=== PATIENT | female | born 1990 ===

== ENCOUNTER 2017-05-30 09:02 | Inpatient (IN) | payer MEDICAID ==
[2017-05-30 09:05] VITALS: BMI 23.9
[2017-05-30] MEDS ORDERED: Sodium Chloride 0.9% 500 ML IV ONE (09:42)
--- NOTE | 2017-05-30 09:47 | ED PDOC ---
Lower Extremity Pain/Injury Time Seen by Provider: 05/30/17 09:21 Chief Complaint (Nursing): Lower Extremity Problem/Injury History Per: Patient History/Exam Limitations: no limitations Onset/Duration Of Symptoms: Days (3), Gradual Current Symptoms Are (Timing): Still Present Severity: Moderate Additional History Per: Patient Additional Complaint(s): pt states she twisted her knee 3 days ago, and sx are worsened today, also has diffuse tingling, anxiety, pt states last drink one day ago, denies chronic alcohol abuse. no f/c/n/v/cp/sob - Knee Description Of Injury: Twisted Currently Unable To: Straighten Alleviating Factor(s): OTC Pain Medication Past Medical History Reviewed: Historical Data, Nursing Documentation, Vital Signs Vital Signs: Last Vital Signs Temp 98.4 F 05/30/17 09:20 Pulse 121 H 05/30/17 09:20 Resp 18 05/30/17 09:20 BP 151/98 H 05/30/17 09:20 Pulse Ox 100 05/30/17 09:20 - Medical History PMH: Anxiety, HTN Denies: Chronic Kidney Disease - Family History Family History: States: Unknown Family Hx - Living Arrangements Living Arrangements: With Family - Social History Current smoker - smoking cessation education provided: No Alcohol: Occasional - Home Medications Home Medications: Ambulatory Orders Medication Instructions Recorded Clindamycin [Cleocin] 300 mg PO QID #40 cap 11/16/14 Hydrocortisone 2.5% (Rectal) 1 applic OK BID #1 tube 11/16/14 [Anusol-HC] Oxycodone HCl/Acetaminophen 1 tab PO Q6 PRN #10 tab 11/16/14 [Percocet 325 mg-5 mg] Acetaminophen/Butalbital/Caf 1 tab PO Q6 PRN #30 tab 06/18/15 [Fioricet] Alprazolam [Xanax] 0.25 mg PO DAILY PRN 05/30/17 Methimazole [Tapazole] 5 mg PO BID 05/30/17 Metoprolol Succinate [Toprol XL] 50 mg PO DAILY 05/30/17 - Allergies Allergies/Adverse Reactions: Allergies Allergy/AdvReac Type Severity Reaction Status Date / Time morphine AdvReac VOMITING Verified 05/30/17 09:36 Review of Systems ROS Statement: Except As Marked, All Systems Reviewed And Found Negative Constitutional: Negative for: Fever, Chills Cardiovascular: Positive for: Palpitations. Negative for: Chest Pain Respiratory: Negative for: Cough, Shortness of Breath Gastrointestinal: Negative for: Nausea, Vomiting, Abdominal Pain Skin: Negative for: Rash Neurological: Positive for: Other (tingling). Negative for: Weakness, Numbness , Altered Mental Status, Headache Psych: Positive for: Anxiety. Negative for: Depression, Psychosis, Suicidal ideation Physical Exam - Reviewed Nursing Documentation Reviewed: Yes Vital Signs Reviewed: Yes - Physical Exam Appears: Positive for: Uncomfortable Head Exam: Positive for: ATRAUMATIC, NORMAL INSPECTION, NORMOCEPHALIC Skin: Positive for: Normal Color, Warm, Dry Eye Exam: Positive for: Normal appearance, EOMI, PERRL ENT: Positive for: Pharynx Is (clear, dry mmm). Negative for: Nasal Congestion , Tonsillar Swelling Neck: Positive for: Painless ROM, Supple. Negative for: Normal (has goiter, non tender), Decreased ROM, Limited ROM, Pain On Movement Of Neck Cardiovascular/Chest: Positive for: Tachycardia. Negative for: Chest Non Tender , Edema, Gallop, Murmur, Bradycardia Respiratory: Positive for: Normal Breath Sounds. Negative for: Decreased Breath Sounds, Accessory Muscle Use, Crackles, Rales, Rhonchi, Stridor, Wheezing , Respiratory Distress Pulses-Dorsalis Pedis (L): 2+ Pulses-Dorsalis Pedis (R): 2+ Pulses-Post. Tibialis (L): 2+ Pulses-Post. Tibialis (R): 2+ Pulses-Radial (L): 2+ Pulses-Radial (R): 2+ Gastrointestinal/Abdominal: Positive for: Normal Exam, Bowel Sounds, Soft. Negative for: Tenderness Back: Positive for: Normal Inspection. Negative for: L CVA Tenderness, R CVA Tenderness Extremity: Positive for: Other (cannot extend left knee against gravity, neg drawer, foot nvi). Negative for: Tenderness, Pedal Edema Neurologic/Psych: Positive for: Alert, investment analyst II-XII, Oriented, Mood/Affect ( anxious). Negative for: Motor/Sensory Deficits, Aphasia, Facial Droop - Laboratory Results Result Diagrams: 05/30/17 10:22 05/30/17 10:22 - ECG ECG: Positive for: Interpreted By Me ECG Rhythm: Positive for: Normal QRS, Normal ST Segment, Sinus Tachycardia (113) Interpretation Of Abn EKG: rate of 113, incomplete bbb pattern O2 Sat by Pulse Oximetry: 100 Pulse Ox Interpretation: Normal - Radiology X-Ray: Interpreted by Me X-Ray Interpretation: No Acute Disease - Progress ED Course And Treament: pt received iv fluids and insulin seen and eval by intesivist Dr Wen, advise treatment on telemetry. discussed case with Dr weiner agree's with treatment will hold on iodine. pt agree's with plan, place left knee on immoblizer, nvi after. Re-evaluation Time: 14:00 Condition: Improved Disposition - Clinical Impression Clinical Impression: Knee pain, left, Hyperglycemia, unspecified, Hyperthyroidism - Patient ED Disposition Is Patient to be Admitted: Yes Counseled Patient/Family Regarding: Studies Performed, Diagnosis - Disposition Disposition Time: 14:00 Condition: STABLE Forms: [employer] (Maldivian) - Pt Status Changed To: Hospital Disposition Of: Inpatient - Admit Certification Admit to Inpatient:: After my assessment, the patient will require hospitalization for at least two midnights. This is because of the severity of symptoms shown, intensity of services needed, and/or the medical risk in this patient being treated as an outpatient. - POA Present On Arrival: Poor Glycemic Control
[2017-05-30 10:31] LABS: BASO % 0.3 % (0.0-2.0); EOS % 0.4 % (0.0-4.0); HEMATOCRIT 43.1 % (34.0-47.0); LYMPH # 2.8 K/uL (1.0-4.3); LYMPH % 38.9 % (20.0-40.0); MEAN CELL VOLUME 73.6 fl (81.0-99.0); MEAN CORPUSCULAR HGB CONC 31.2 g/dL (33.0-37.0); MEAN PLATELET VOLUME 10.7 fl (7.2-11.7); MONO # 0.6 K/uL (0.0-0.8); MONO % 8.5 % (0.0-10.0); NEUT # 3.7 K/uL (1.8-7.0); NEUT % 51.9 % (50.0-75.0); NRBC % 0.1 % (0.0-0.0); RED CELL DISTRIBUTION WIDTH 13.8 % (11.5-14.5); WHITE BLOOD COUNT 7.2 K/uL (4.8-10.8)
--- NOTE | 2017-05-30 10:38 | RAD ---
PROCEDURE: Left Knee Radiographs. HISTORY: Pain. COMPARISON: None. FINDINGS: BONES: Bone alignment and mineralization are normal. No acute fracture or bone destruction. JOINTS: Normal. JOINT EFFUSION: There is a small suprapatellar joint effusion. OTHER FINDINGS: None. IMPRESSION: No acute fracture or dislocation. Small suprapatellar joint effusion.
[2017-05-30 10:52] LABS: ALB/GLOB RATIO 1.5 (1.0-2.1); ALKALINE PHOSPHATASE 234 U/L (38-126); ALT/SGPT 79 U/L (9-52); AST/SGOT 45 U/L (14-36); BILIRUBIN,TOTAL 0.8 mg/dl (0.2-1.3); BLOOD UREA NITROGEN 15 mg/dl (7-17); CALCIUM 10.7 mg/dL (8.4-10.2); CARBON DIOXIDE 21 mmol/L (22-30); CHLORIDE 93 mmol/L (98-107); GFR AFRICAN-AMERICAN > 60; MAGNESIUM 1.6 MG/DL (1.6-2.3); PHOSPHOROUS 4.7 mg/dl (2.5-4.5); POTASSIUM 4.5 MMOL/L (3.6-5.0); SODIUM 129 mmol/l (132-148); TOTAL PROTEIN 7.3 G/DL (6.3-8.2)
[2017-05-30 10:57] LABS: GLUCOSE,RANDOM 467 mg/dL (65-105)
[2017-05-30 11:10] LABS: T4 > 24.9 ug/dl (5.5-11.0)
[2017-05-30] MEDS ORDERED: Sodium Chloride 0.9% 1,000 ML IV ONE (11:19)
[2017-05-30 11:22] LABS: THYROID STIMULATING HORMONE < 0.02 mIU/ML (0.46-4.68)
[2017-05-30] MEDS ORDERED: Insulin Regular 100 units/ml IV STA (11:25)
[2017-05-30] MEDS ORDERED: Insulin Regular 100 units/ml ONE (12:15)
[2017-05-30] MEDS ORDERED: Hydrocortisone- 100 MG in Sodium Chloride 0.9% 100 ML IV STA (13:12)
--- NOTE | 2017-05-30 13:22 | RAD ---
HISTORY: Tachycardia COMPARISON: No prior. FINDINGS: LUNGS: The lungs are well inflated and clear. PLEURA: No significant pleural effusion identified, no pneumothorax apparent. CARDIOVASCULAR: Normal. OSSEOUS STRUCTURES: No significant abnormalities. VISUALIZED UPPER ABDOMEN: Normal. OTHER FINDINGS: None. IMPRESSION: No active pulmonary disease.
[2017-05-30] MEDS ORDERED: Insulin Regular 100 units/ml SC STA (15:03)
[2017-05-30 17:33] LABS: FOLATE 18.2 ng/mL
[2017-05-30] MEDS ORDERED: Apap-Butalbital-Caffeine 325-50-40mg Tab PO PRN (19:37)
--- NOTE | 2017-05-31 01:47 | CON ---
ENDOCRINOLOGY CONSULT LOCATION: Room 416. HISTORY OF PRESENT ILLNESS: This is a 26-year-old female with known history of hyperthyroidism, currently on Tapazole taken as 5 mg b.i.d. and presented here to the emergency room with progressively worsening palpitations and precordial chest pain and has been evaluated with marked hyperthyroidism and is now being referred for endocrine evaluation and management. She also has recent left knee strain and has severe left knee arthralgia as noted thereof. PAST MEDICAL HISTORY: As mentioned above. History of Graves disease with hyperthyroidism on the aforementioned medications, history of hypertension and dyslipidemia. FAMILY HISTORY: Positive for hypertension and heart disease. No known thyroid endocrinopathy. SOCIAL HISTORY: The patient admits to occasional alcohol use. No other known substance use. She has a supportive family otherwise. REVIEW OF SYSTEMS: Admits to generalized body weakness with easy fatigability and tiredness and suboptimal energy level. Also admits to episodic bouts of dizziness and lightheadedness, worse in the left few days prior to admission with bifrontal headaches as noted. Also admits to precordial chest pain with progressively worsening palpitations and shortness of breath especially on exertion. Admits to episodic bouts of anxiety with marked insomnia, again worse in the last 2 to 3 weeks prior to admission. Also admits to variable oral intake with nausea, dyspepsia, and hyperdefecation, again worse in the last few days prior to admission. PHYSICAL EXAMINATION. GENERAL: This is an average built female, in no apparent distress. VITAL SIGNS: Blood pressure 160/100, pulse of 120 beats per minute and regular, temperature 98, respirations 20. Height is 5 feet 3 inches and weight is 136 pounds. HEENT: Head is normocephalic. Eyes; anicteric with pink conjunctivae. Funduscopy not possible at this time. She has a positive sphere in both eyes, but no overt orbit palsy otherwise. No any overt proptosis or lid retraction is noted. NECK: Supple. Thyroid gland shows diffuse thyromegaly which is nontender and firm with positive thyroid bruit noted. No overt possible thyroid nodules otherwise. HEART: Hyperdynamic precordium. S1 and S2 is rapid and regular. LUNGS: Clear to auscultation. ABDOMEN: Flat and soft with positive bowel sounds. EXTREMITIES: No peripheral edema. Pulses are +2 bilaterally. Reflexes are hyperdynamic as noted. LABORATORY DATA: Thyroxine or total T4 is greater than 24.9 with a total T3 of greater than 7.81 and TSH of less than 0.02. The chemistry showed a BUN of 15, sodium 129, potassium 4.5, chloride 93, CO2 of 21, glucose 467 and creatinine 0.3. Calcium is 10.7, slightly elevated liver transaminases. ASSESSMENT: This is a 26-year-old female with overt thyrotoxicosis presenting here with palpitations and precordial chest pain and clearly has marked hyperthyroidism both historically, clinically and by chemically, most likely related to underlying Graves' disease and autoimmune thyroiditis. She also has a diffuse toxic goiter with no overt compressive or obstructive manifestations. PLAN: Plan of management was discussed with the patient's staff. We will maximize for medical therapy with Thiourea using Tapazole given as 20 mg p.o. t.i.d. after meals as ordered. We will also obtain a thyroid stimulating immunoglobulin, thyroid peroxidase and thyroglobulin antibody which will confirm and/or indicate the presence of thyroid autoimmunity. We will also obtain a comprehensive thyroid hormonal profile with a repeat total and free T4, TSH as ordered. We will also obtain a hemoglobin A1c to confirm the presence of previous glucose intolerance and/or overt type 2 diabetes especially with the random glucose level of over 400 mg/dL. We will start her right away on the low-dose correction scale using Humalog insulin with the fingerstick to be done before meals and at bedtime as ordered. If hyperglycemic levels persist and we will start her right away on a basal insulin therapy with combination of oral hypoglycemic drug therapy as indicated. We will also obtain a GGPP level, serial liver function studies as we expect transient elevation of the liver transaminases with overt hyperthyroidism. We will obtain also a thyroid ultrasound to confirm the actual thyroid lobe dimensions and also to prepare her for possible radioactive iodine ablation depending on the dimension of the thyroid lobe. Patient's with smaller goiters may quality for radioactive iodine therapy and people with moderately enlarged goiters may require much higher dose of the radioactive iodine putting them at the slightly higher risk for potential malignancies in the future. We will continue the medical therapy for now, but we will also discuss with the patient prior to her discharge the other therapeutic options as indicated. Most of the patient's with hyperthyroidism benefit from radioactive iodine ablation and patient's with much larger goiters would benefit from surgical resection as indicated. We will follow and advice accordingly. Kenzie Alanis MD
[2017-05-31 05:59] LABS: HEMATOCRIT 41.4 % (34.0-47.0); MEAN CORPUSCULAR HEMOGLOBIN 23.1 pg (27.0-31.0); MEAN CORPUSCULAR HGB CONC 31.3 g/dL (33.0-37.0); WHITE BLOOD COUNT 4.9 K/uL (4.8-10.8)
[2017-05-31 06:09] LABS: ALB/GLOB RATIO 1.4 (1.0-2.1); ALKALINE PHOSPHATASE 156 U/L (38-126); ALT/SGPT 68 U/L (9-52); AST/SGOT 36 U/L (14-36); BILIRUBIN,TOTAL 0.7 mg/dl (0.2-1.3); BLOOD UREA NITROGEN 13 mg/dl (7-17); CALCIUM 10.2 mg/dL (8.4-10.2); CARBON DIOXIDE 22 mmol/L (22-30); CHLORIDE 98 mmol/L (98-107); CHOLESTEROL 79 mg/dL (0-199); GFR AFRICAN-AMERICAN > 60; POTASSIUM 4.8 MMOL/L (3.6-5.0); SODIUM 132 mmol/l (132-148); TOTAL PROTEIN 6.5 G/DL (6.3-8.2)
[2017-05-31 06:25] LABS: T4 > 24.9 ug/dl (5.5-11.0)
[2017-05-31 06:39] LABS: THYROID STIMULATING HORMONE < 0.02 mIU/ML (0.46-4.68)
[2017-05-31] MEDS: Insulin Lispro (humaLOG) 100 Units/ml Inj SC SCH ×6 (06:40→23:00)
[2017-05-31 06:54] LABS: GLUCOSE,RANDOM 476 mg/dL (65-105)
[2017-05-31] MEDS: Metoprolol Succinate 50 mg XL Tab PO SCH (09:01)
--- NOTE | 2017-05-31 11:31 | US ---
HISTORY: Diffuse Toxic Goiter/Hyperthyroidism TECHNIQUE: Grayscale imaging was performed. COMPARISON: None FINDINGS: RIGHT LOBE: Measures 7.0 x 3.6 x 2.7 cm. There is diffuse heterogeneous echotexture and diffuse increased vascularity. Nodules: None LEFT LOBE: Measures 6.5 x 3.9 x 2.9 cm. There is diffuse heterogeneous echotexture and diffuse increased vascularity. Nodules: None ISTHMUS: Measures 1.3 cm. There is diffuse heterogeneous echotexture and diffuse increased vascularity. Nodules: None OTHER FINDINGS: None . IMPRESSION: Enlarged heterogeneous hypervascular thyroid gland without discrete solid or cystic nodule.
[2017-05-31] MEDS: Sodium Chloride 0.9% 1,000 ML IV SCH ×2 (14:00→22:26)
--- NOTE | 2017-05-31 15:09 | CP.PCM.HP ---
History of Present Illness - History of Present Illness History of Present Illness: CC: Pain LLE. 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 Worsening symptoms: Anxiety attack, legs weakness, Pelvis pain. Critical lab result while in ER, BS: 476, Pt asymptomatic. Aggravated factor: Unable to straight her. Pt denied: Fever, chills, n/v/d, abdominal pain, urinary symptoms, CP, SOB, cough, AMS, headache, sick contact. PMHx: HTN, Hyperthyroidism, Migraine, Lightheadedness, Anxiety. X Ray L knee showed: No acute Fx or dislocation, small suprapatellar joint effusion. CXR: No active pulmonary disease. Thyroid U-S: Enlarged heterogeneous hypervascular thyroid gland, no nodule. Present on Admission - Present on Admission Any Indicators Present on Admission: Yes History of Uncontrolled Diabetes: Yes Review of Systems - Constitutional Constitutional: Other (negative) - EENT Eyes: Requires Corrective Lenses Ears: Other (negative) Nose/Mouth/Throat: Other (negative) - Respiratory Respiratory: Other (negative) - Gastrointestinal Gastrointestinal: Other (negative) - Genitourinary Genitourinary: Other (negative) - Musculoskeletal Musculoskeletal: Muscle Weakness (LLE), Other (Lknee pain) - Integumentary Integumentary: Other (negative) - Neurological Neurological: Numbness (LLE), Tingling (LLE) - Psychiatric Psychiatric: Anxiety - Endocrine Endocrine: Other (negative) - Hematologic/Lymphatic Hematologic: Other (negative) Past Patient History - Past Medical History & Family History Past Medical History?: Yes Pertinent Family History: Unknown - Past Social History Smoking Status: Former Smoker Alcohol: Social Drugs: Denies Home Situation {Lives}: With Family - CARDIAC Hx Cardiac Disorders: Yes Hx Hypertension: Yes - PULMONARY Hx Respiratory Disorders: No - NEUROLOGICAL Hx Neurological Disorder: Yes Hx Migraine: Yes Other/Comment: lightheadedness - HEENT Hx HEENT Problems: Yes Other/Comment: glasses - RENAL Hx Chronic Kidney Disease: No - ENDOCRINE/METABOLIC Hx Endocrine Disorders: Yes Hx Hyperthyroidism: Yes - HEMATOLOGICAL/ONCOLOGICAL Hx Blood Disorders: No - INTEGUMENTARY Hx Dermatological Problems: Yes Hx Psoriasis: Yes - MUSCULOSKELETAL/RHEUMATOLOGICAL Hx Musculoskeletal Disorders: No Hx Falls: No - GASTROINTESTINAL Hx Gastrointestinal Disorders: No - GENITOURINARY/GYNECOLOGICAL Hx Genitourinary Disorders: No - PSYCHIATRIC Hx Psychophysiologic Disorder: Yes Hx Anxiety: Yes Hx Substance Use: No - SURGICAL HISTORY Hx Surgeries: Yes Other/Comment: Anal cyst removal - ANESTHESIA Hx Anesthesia: Yes Hx Anesthesia Reactions: No Meds Home Medications: Home Medication List Medication Instructions Recorded Confirmed Type Insulin Detemir [Levemir] 40 units SC HS #1 vial 06/02/17 Rx Insulin Lispro [Humalog Kwikpen 20 unit SQ ACTID #1 insuln.pen 06/02/17 Rx U-100] methIMAzole [Tapazole] 20 mg PO BID #120 tab 06/02/17 Rx Allergies/Adverse Reactions: Allergies Allergy/AdvReac Type Severity Reaction Status Date / Time morphine AdvReac VOMITING Verified 05/30/17 09:36 Physical Exam - Constitutional Appears: No Acute Distress - Head Exam Head Exam: NORMAL INSPECTION - Eye Exam Eye Exam: PERRL - ENT Exam ENT Exam: Normal Exam - Neck Exam Neck exam: Positive for: Normal Inspection - Respiratory Exam Respiratory Exam: NORMAL BREATHING PATTERN - Cardiovascular Exam Cardiovascular Exam: REGULAR RHYTHM - GI/Abdominal Exam GI & Abdominal Exam: Normal Bowel Sounds, Soft - Extremities Exam Additional comments: Cannot extend L knee against gravity. - Back Exam Back exam: NORMAL INSPECTION - Neurological Exam Neurological exam: Alert, CN II-XII Intact, Oriented x3 - Psychiatric Exam Psychiatric exam: Anxious - Skin Skin Exam: Warm Results - Vital Signs Recent Vital Signs: Last Vital Signs Temp 98.0 F 05/31/17 12:00 Pulse 109 H 05/31/17 12:00 Resp 18 05/31/17 12:00 BP 124/67 05/31/17 12:00 Pulse Ox 99 05/31/17 12:00 laura Quezada - Labs Result Diagrams: 05/31/17 05:20 06/01/17 05:00 Labs: Laboratory Results - last 24 hr 05/31/17 05/31/17 05/31/17 05:20 05:20 05:20 WBC 4.9 RBC 5.60 H Hgb 12.9 Hct 41.4 MCV 74.0 L MCH 23.1 L MCHC 31.3 L RDW 14.0 Plt Count 159 Sodium 132 Potassium 4.8 Chloride 98 Carbon Dioxide 22 Anion Gap 16 BUN 13 Creatinine 0.3 L Est GFR ( Amer) > 60 Est GFR (Non-Af Amer) > 60 POC Glucose (mg/dL) Random Glucose 476 H* Hemoglobin A1c Calcium 10.2 Total Bilirubin 0.7 GGT 22 AST 36 ALT 68 H Alkaline Phosphatase 156 H D Total Protein 6.5 Albumin 3.8 Globulin 2.7 Albumin/Globulin Ratio 1.4 Triglycerides 235 H Cholesterol 79 LDL Cholesterol Direct < 30 HDL Cholesterol 25 L 25-OH Vitamin D Total Free T4 6.93 H Thyroxine (T4) > 24.9 H TSH 3rd Generation < 0.02 L 05/31/17 05/31/17 05/31/17 05:20 05:20 05:27 WBC RBC Hgb Hct MCV MCH MCHC RDW Plt Count Sodium Potassium Chloride Carbon Dioxide Anion Gap BUN Creatinine Est GFR ( Amer) Est GFR (Non-Af Amer) POC Glucose (mg/dL) 429 H* Random Glucose Hemoglobin A1c 14.5 H Calcium Total Bilirubin GGT AST ALT Alkaline Phosphatase Total Protein Albumin Globulin Albumin/Globulin Ratio Triglycerides Cholesterol LDL Cholesterol Direct HDL Cholesterol 25-OH Vitamin D Total 29.4 L Free T4 Thyroxine (T4) TSH 3rd Generation 05/31/17 11:04 WBC RBC Hgb Hct MCV MCH MCHC RDW Plt Count Sodium Potassium Chloride Carbon Dioxide Anion Gap BUN Creatinine Est GFR ( Amer) Est GFR (Non-Af Amer) POC Glucose (mg/dL) 498 H* Random Glucose Hemoglobin A1c Calcium Total Bilirubin GGT AST ALT Alkaline Phosphatase Total Protein Albumin Globulin Albumin/Globulin Ratio Triglycerides Cholesterol LDL Cholesterol Direct HDL Cholesterol 25-OH Vitamin D Total Free T4 Thyroxine (T4) TSH 3rd Generation reviewed J.P. - Imaging and Cardiology Chest x-ray Status: Report reviewed by me (J.P.) Additional comment: L knee X-Ray and Thyroid U-S Reviewed J.P. Assessment & Plan (1) Left knee pain Status: Acute Priority: High (2) Hyperglycemia, unspecified Status: Acute Priority: High (3) Hyperthyroidism Status: Chronic Priority: High (4) Anxiety Status: Chronic Priority: High - Assessment and Plan (Free Text) Plan: F/U Ext U-S, Pelvis U-S, Continue Metoprolol, Insulin, Xanax, rest of Tx. Endocrinology consult appreciated. - Date & Time Date: 05/31/17 Time: 14:50
--- NOTE | 2017-05-31 17:55 | US ---
PROCEDURE: Bilateral lower extremity venous duplex Doppler. HISTORY: LE swelling COMPARISON: None available. TECHNIQUE: Bilateral common femoral, superficial femoral, popliteal and posterior tibial veins were evaluated. Flow was assessed with color Doppler, compressibility, assessment of phasic flow and augmentation response. FINDINGS: COMMON FEMORAL VEIN: Right CFV: There is normal direction of flow, compressibility and augmentation response. Left CFV: There is normal direction of flow, compressibility and augmentation response. SUPERFICIAL FEMORAL VEIN: Right SFV: There is normal direction of flow, compressibility and augmentation response. Left SFV: There is normal direction of flow, compressibility and augmentation response. POPLITEAL VEIN: Right Popliteal: There is normal direction of flow, compressibility and augmentation response. Left Popliteal: There is normal direction of flow, compressibility and augmentation response. POSTERIOR TIBIAL VEIN: Right PTV: There is normal direction of flow, compressibility and augmentation response. Left PTV: There is normal direction of flow, compressibility and augmentation response. OTHER FINDINGS: None. IMPRESSION: No evidence of deep venous thrombosis.
--- NOTE | 2017-05-31 17:56 | US ---
HISTORY: Pelvic pain COMPARISON: None available. TECHNIQUE: Transabdominal pelvic ultrasound was performed. FINDINGS: UTERUS: Measures 6.5 x 3.7 x 1.8 cm. Anteverted, normal in size and appearance. No fibroid or other mass lesion seen. ENDOMETRIUM: Measures 1.7 mm in diameter. Unremarkable. CERVIX: No cervical abnormality identified. RIGHT OVARY: Measures 2.7 x 2.5 x 1.0 cm. No solid mass. Normal flow. LEFT OVARY: Measures 2.9 x 2.4 x 1.2 cm. No solid mass. Normal flow. FREE FLUID: No significant free fluid noted. OTHER FINDINGS: None. IMPRESSION: Normal pelvic ultrasound.
--- NOTE | 2017-05-31 19:32 | PN ---
ROOM: 416 This is a 26-year-old female with recent uncontrolled type 2 insulin requiring diabetes of apparent recent onset and diagnosis, presenting here with marked hyperglycemic accelerations and glucose levels over 400 with no apparent prior evaluation of intake of medications for management of type 2 diabetes as noted thereof. Moreover, she also has had precordial chest pain with palpitations and also evaluated to have overt thyrotoxicosis historically, clinically and biochemically as noted thereof. Her glucose levels today have ranged from 429 to 498 mg/dL. Her hemoglobin A1c is 14.5% which is quite elevated and indicative of suboptimal metabolic control of her diabetic condition even prior to this admission and clearly a fairly recent onset as the patient has not been on any kind of medications at this time. Her latest chemistry showed a BUN of 13, sodium 132, potassium 4.8, chloride 98, CO2 of 22, glucose 476 and creatinine 0.3. Her hemoglobin A1c as mentioned is 14.5%. Her repeat thyroid studies showed a T4 of greater than 24.9 with a free T4 of 6.93 and a TSH of less than 0.02. So, at this time we will modify her current insulin regimen and switch her over to a more physiologic basal and bolus insulin dose regimen to optimize her metabolic control. We will add Humalog given as 12 units subcu t.i.d. before meals to start at lunchtime today as ordered. We will also add Levemir given as 30 units subcu at bedtime daily to start tonight. We will modify the coverage scale to ciara hypoglycemia and detailed orders have been given. We will also initiate and continue her medical therapy giving the high dose of thiourea for management of marked hyperthyroidism and continue the Tapazole given as 20 mg p.o. t.i.d. after meals as ordered. We will obtain a thyroid ultrasound to ascertain and fully delineate her thyroid lobe dimensions accordingly. We will hold off on a thyroid scanner uptake and we will do this only on the outpatient as she clearly needs a more definitive management of her hyperthyroid condition, either by medical therapy at a high dose regimen and/or radioactive iodine ablation as noted thereof. We will obtain serial chemistry and supplement accordingly as needed. We will also initiate vigorous IV hydration for optimal replenishment of the lost fluids and electrolyte, especially with marked hyperglycemic accelerations and expected increased osmotic diuresis thereof. We will obtain serial chemistries and supplement accordingly as needed. We will also initiate diet restriction and dietary instructions at the time of this admission. We will follow. Kenzie Alanis MD
[2017-05-31] MEDS ORDERED: Insulin Detemir 100 Units/ml Inj SC SCH (22:00)
[2017-06-01] MEDS: Sodium Chloride 0.9% 1,000 ML IV SCH (05:44)
[2017-06-01] MEDS: Insulin Lispro (humaLOG) 100 Units/ml Inj SC SCH ×7 (06:52→22:59)
[2017-06-01 06:57] LABS: ALB/GLOB RATIO 1.3 (1.0-2.1); ALKALINE PHOSPHATASE 129 U/L (38-126); ALT/SGPT 58 U/L (9-52); AST/SGOT 33 U/L (14-36); BILIRUBIN,TOTAL 0.5 mg/dl (0.2-1.3); BLOOD UREA NITROGEN 12 mg/dl (7-17); CALCIUM 10.1 mg/dL (8.4-10.2); CARBON DIOXIDE 23 mmol/L (22-30); CHLORIDE 104 mmol/L (98-107); GFR AFRICAN-AMERICAN > 60; GLUCOSE,RANDOM 244 mg/dL (65-105); MAGNESIUM 1.4 MG/DL (1.6-2.3); PHOSPHOROUS 5.5 mg/dl (2.5-4.5); POTASSIUM 4.3 MMOL/L (3.6-5.0); SODIUM 138 mmol/l (132-148); TOTAL PROTEIN 6.3 G/DL (6.3-8.2)
[2017-06-01 07:02] LABS: T4 22.3 ug/dl (5.5-11.0)
[2017-06-01 07:15] LABS: THYROID STIMULATING HORMONE < 0.02 mIU/ML (0.46-4.68)
[2017-06-01] MEDS: Metoprolol Succinate 50 mg XL Tab PO SCH (09:03)
--- NOTE | 2017-06-01 16:45 | CP.PCM.PN ---
Subjective - Date & Time of Evaluation Date of Evaluation: 06/01/17 Time of Evaluation: 10:20 - Subjective Subjective: F/U L knee pain. Pt with no c/o of pain now. Objective - Vital Signs/Intake and Output Vital Signs (last 24 hours): Temp Pulse Resp BP Pulse Ox 98.4 F 110 H 20 124/51 L 99 06/01/17 15:40 06/01/17 15:40 06/01/17 15:40 06/01/17 15:40 06/01/17 15:40 Intake and Output: 06/01/17 06/01/17 06:59 18:59 Intake Total 1440 Balance 1440 - Medications Medications: Current Medications Acetaminophen/Butalbital/Caffeine (Fioricet) 1 tab PO Q6 PRN PRN Reason: Headache Alprazolam (Xanax) 0.25 mg PO DAILY PRN PRN Reason: Anxiety Insulin Detemir (Levemir) 40 units SC HS PARAG Insulin Human Lispro (Humalog) 0 units SC ACHS PARAG PRN Reason: Protocol Last Admin: 06/01/17 13:33 Dose: 6 unit Insulin Human Lispro (Humalog) 20 units SC AC PARAG Methimazole (Tapazole) 20 mg PO TID [facility] Last Admin: 06/01/17 13:34 Dose: 20 mg Metoprolol Succinate (Toprol Xl) 50 mg PO DAILY [facility] Last Admin: 06/01/17 09:03 Dose: 50 mg - Labs Labs: 05/31/17 05:20 06/01/17 05:00 - Constitutional Appears: No Acute Distress - Head Exam Head Exam: NORMAL INSPECTION - Eye Exam Eye Exam: PERRL - ENT Exam ENT Exam: Normal Exam - Neck Exam Neck Exam: Normal Inspection Additional comments: Enlarged Thyroid non tenderness on palpation. - Respiratory Exam Respiratory Exam: NORMAL BREATHING PATTERN - Cardiovascular Exam Cardiovascular Exam: REGULAR RHYTHM - GI/Abdominal Exam GI & Abdominal Exam: Soft, Normal Bowel Sounds - Extremities Exam Extremities Exam: Normal Inspection - Back Exam Back Exam: NORMAL INSPECTION - Neurological Exam Neurological Exam: Alert, CN II-XII Intact, Oriented x3 - Psychiatric Exam Psychiatric exam: Anxious - Skin Skin Exam: Warm Assessment and Plan (1) Left knee pain Status: Acute (2) Hyperglycemia, unspecified Status: Acute (3) Hyperthyroidism Status: Chronic (4) Goiter Status: Deleted (5) Anxiety Status: Chronic - Assessment and Plan (Free Text) Plan: Thyroid U-S: Enlarged Thyroid, no evidence of solid or cystic nodule/s. Pt was instructed for the use of insulin meter,continue current Tx.
--- NOTE | 2017-06-01 21:16 | PN ---
LOCATION: Room #416. SUBJECTIVE: This is a 26-year-old female with recent uncontrolled type 2 insulin-requiring diabetes of recent diagnosis and onset, presenting here with hyperosmolar hyperglycemic state and dehydration and is now being followed closely for metabolic management. Her glycemic levels are fluctuating, but improved, and her latest glucose levels overnight have ranged from 385 to 498 mg/dL. It was 268 this morning as noted. Her latest chemistries showed a BUN of 12, sodium 138, potassium 4.3, chloride 104, CO2 of 23, glucose 244, creatinine 0.3, so at this time we will modify her basal insulin and increase the Levemir to 40 units subcu at bedtime daily to start tonight. We will also increased her Humalog down to 40 units subcu at bedtime daily as given. The patient today received diabetic education from our nurse educator Ms. and she will be self administer her on insulin regimen at home. We will continue the low dose correction scale using Humalog insulin as given. We will also increase the Humalog given before each meal to a dose of 20 units subcu t.i.d. before meals as given. We will titrate incrementally as indicated to optimize metabolic control. We will follow up with her. Kenzie Alanis MD
[2017-06-01] MEDS ORDERED: Insulin Detemir 100 Units/ml Inj SC SCH (22:00)
[2017-06-02 00:14] VITALS: RESP 18
[2017-06-02] MEDS: Insulin Lispro (humaLOG) 100 Units/ml Inj SC SCH ×4 (06:34→13:52)
[2017-06-02 08:56] LABS: FT3 > 22.80 pg/mL (2.77-5.27)
[2017-06-02] MEDS: Metoprolol Succinate 50 mg XL Tab PO SCH (09:09)
--- NOTE | 2017-06-02 12:03 | PQF GENQUE ---
Dr. Caro, In agreement with the diagnoses of Uncontrolled DM 2: presenting here with hyperosmolar hyperglycemic state and dehydration and/or Thyrotoxicosis as documented by Endocrinology? OR: Disagree OR: Other explanation of clinical finsing 05/31 Endo consult ; recent uncontrolled type 2 insulin requiring diabetes of apparent recent onset and diagnosis, presenting here with marked hyperglycemic accelerations and glucose levels over 400 with no apparent prior evaluation of intake of medications for management of type 2 diabetes as noted thereof. Moreover, she also has had precordial chest pain with palpitations and also evaluated to have overt thyrotoxicosis historically, clinically and biochemically as noted thereof---Her hemoglobin A1c as mentioned is 14.5%. Her repeat thyroid studies showed a T4 of greater than 24.9 with a free T4 of 6.93 and a TSH of less than 0.02will also initiate and continue her medical therapy giving the high dose of thiourea for management of marked hyperthyroidism and continue the Tapazole given as 20 mg p.o. t.i.d. after meals as ordered 06/01 Endo progress note: uncontrolled type 2 insulin-requiring diabetes of recent diagnosis and onset, presenting here with hyperosmolar hyperglycemic state and dehydration accuchecks/ Insulin This form is a permanent part of the medical record Clarification of your documentation is requested to better reflect the severity of illness and intensity of treatment of your patient. Indicators present [] Specify: [] [] Specify: [] [] Specify: [] [] Specify: [] Location in the medical record that reflects the above clinical findings: [] Treatment Provided: [] PHYSICIAN'S RESPONSE Based on your medical judgment of the clinical indicators outlined above please clarify the following: [] Practitioner response [] If unable to determine, please check the box, sign and date. Present On Admission (POA) Indicator: [] Present at the time of admission [] Not present at the time of admission [] Clinically Undetermined In responding to this query, please exercise your independent professional judgment. The fact that a question is asked does not imply that any particular answer is desired or expected. Thank you for your clarification on this documentation. If you have any questions please call. * Thank you, Aviva Crews RN BSN ext. #[phone] MTDD
[2017-06-02 12:13] VITALS: BP 115/67; PULSE 95; TEMP 98.5; O2SAT 98
--- NOTE | 2017-06-02 17:40 | CP.PCM.PN ---
Subjective - Date & Time of Evaluation Date of Evaluation: 06/02/17 Time of Evaluation: 13:10 - Subjective Subjective: F/U L knee pain. Pt with no c/o, doing well. Objective - Vital Signs/Intake and Output Vital Signs (last 24 hours): Temp Pulse Resp BP Pulse Ox 98.5 F 95 H 18 115/67 98 06/02/17 12:00 06/02/17 12:00 06/02/17 12:00 06/02/17 12:00 06/02/17 12:00 Intake and Output: 06/02/17 06/02/17 06:59 18:59 Intake Total 1260 Balance 1260 - Labs Labs: 05/31/17 05:20 06/01/17 05:00 - Constitutional Appears: No Acute Distress - Head Exam Head Exam: NORMAL INSPECTION - Eye Exam Eye Exam: PERRL - ENT Exam ENT Exam: Normal Exam - Neck Exam Additional comments: Enlarged Thyroid non tenderness on palpation. - Respiratory Exam Respiratory Exam: NORMAL BREATHING PATTERN - Cardiovascular Exam Cardiovascular Exam: REGULAR RHYTHM - GI/Abdominal Exam GI & Abdominal Exam: Soft, Normal Bowel Sounds - Extremities Exam Extremities Exam: Normal Inspection - Back Exam Back Exam: NORMAL INSPECTION - Neurological Exam Neurological Exam: Alert, CN II-XII Intact, Oriented x3 - Psychiatric Exam Psychiatric exam: Anxious - Skin Skin Exam: Warm Assessment and Plan (1) Left knee pain Status: Acute (2) Hyperglycemia, unspecified Status: Acute (3) Hyperthyroidism Status: Chronic (4) Goiter Status: Deleted (5) Anxiety Status: Chronic - Assessment and Plan (Free Text) Plan: Pt improved and stable to be discharged, see instruction list, f/u with PMD in a week, f/u with Endocrinology.
--- NOTE | 2017-06-02 18:29 | CARD ---
APPROVED REPORT EKG Measurement Heart [id number] <Conclusion> Sinus tachycardia Biatrial enlargement Left ventricular hypertrophy ST elevation, consider early repolarization, pericarditis, or injury Nonspecific ST and T wave abnormality Abnormal ECG
--- NOTE | 2017-06-03 04:30 | PN ---
ENDOCRINOLOGY FOLLOWUP NOTE DATE: LOCATION: In room 416. SUBJECTIVE: This is a 26-year-old female with recent uncontrolled type 1 insulin-dependent diabetes presenting here with overt thyrotoxicosis as noted thereof. She also admits to pleuritic chest pain in variable dimensions and locations, but preferably in the upper back and neck area as noted. LABORATORY DATA: Her latest chemistry showed a BUN of 12, sodium 138, potassium 4.3, chloride 104, CO2 of 23, glucose 244, and creatinine 0.3. ASSESSMENT AND PLAN: Her glucose levels have ranged from 108 to 316 mg/dL today and also 468 at bedtime as noted. We will modify her current basal and bolus insulin regimen as her insurance company has restrained and preferred insulin regimen as ordered. We will modify the coverage scale to tolerate hypoglycemia and detailed orders have been given. We will recommend for eventual discharge at combination of Humulin 70/30, 30 units a.c. breakfast and 20 units a.c. dinner as ordered. We will continue the modified and much lower Tapazole given as 20 mg p.o. b.i.d. after meals as ordered. We will titrate incrementally indicated to optimize metabolic control. We will follow and advise accordingly. Kenzie Alanis MD
[2017-06-04 19:05] LABS: TSI 443 % baseline (<140)
--- NOTE | 2017-06-08 13:13 | CP.PCM.DIS ---
Provider - Provider Date of Admission: 05/30/17 15:17 Attending physician: Yosvany Caro MD Primary care physician: Cinthya Almonte MD Consults: Diabetic education. Time Spent in preparation of Discharge (in minutes): 25 Diagnosis - Discharge Diagnosis (1) Left knee pain Status: Acute Priority: High (2) Hyperglycemia, unspecified Status: Acute Priority: High (3) Hyperthyroidism Status: Chronic Priority: High (4) Goiter Status: Deleted (5) Anxiety Status: Chronic Priority: High Hospital Course - Lab Results Lab Results: Most Recent Lab Values WBC 4.9 K/uL (4.8-10.8) 05/31/17 05:20 RBC 5.60 Mil/uL (3.80-5.20) H 05/31/17 05:20 Hgb 12.9 g/dL (12.0-16.0) 05/31/17 05:20 Hct 41.4 % (34.0-47.0) 05/31/17 05:20 MCV 74.0 fl (81.0-99.0) L 05/31/17 05:20 MCH 23.1 pg (27.0-31.0) L 05/31/17 05:20 MCHC 31.3 g/dL (33.0-37.0) L 05/31/17 05:20 RDW 14.0 % (11.5-14.5) 05/31/17 05:20 Plt Count 159 K/uL (130-400) 05/31/17 05:20 MPV 10.7 fl (7.2-11.7) 05/30/17 10:22 Neut % (Auto) 51.9 % (50.0-75.0) 05/30/17 10:22 Lymph % (Auto) 38.9 % (20.0-40.0) 05/30/17 10:22 [place] % (Auto) 8.5 % (0.0-10.0) 05/30/17 10:22 Eos % (Auto) 0.4 % (0.0-4.0) 05/30/17 10:22 Baso % (Auto) 0.3 % (0.0-2.0) 05/30/17 10:22 Neut # 3.7 K/uL (1.8-7.0) 05/30/17 10:22 Lymph # 2.8 K/uL (1.0-4.3) 05/30/17 10:22 Willacy # 0.6 K/uL (0.0-0.8) 05/30/17 10:22 Eos # 0.0 K/uL (0.0-0.7) 05/30/17 10:22 Baso # 0.0 K/uL (0.0-0.2) 05/30/17 10:22 Sodium 138 mmol/l (132-148) 06/01/17 05:00 Potassium 4.3 MMOL/L (3.6-5.0) 06/01/17 05:00 Chloride 104 mmol/L (98-107) 06/01/17 05:00 Carbon Dioxide 23 mmol/L (22-30) 06/01/17 05:00 Anion Gap 15 (10-20) 06/01/17 05:00 BUN 12 mg/dl (7-17) 06/01/17 05:00 Creatinine 0.3 mg/dL (0.7-1.2) L 06/01/17 05:00 Est GFR ( Amer) > 60 06/01/17 05:00 Est GFR (Non-Af Amer) > 60 06/01/17 05:00 POC Glucose (mg/dL) 316 mg/dL (65-110) H 06/02/17 11:04 Random Glucose 244 mg/dL (65-105) H 06/01/17 05:00 Hemoglobin A1c 14.5 % (4.2-6.5) H 05/31/17 05:20 Calcium 10.1 mg/dL (8.4-10.2) 06/01/17 05:00 Phosphorus 5.5 mg/dl (2.5-4.5) H 06/01/17 05:00 Magnesium 1.4 MG/DL (1.6-2.3) L 06/01/17 05:00 Total Bilirubin 0.5 mg/dl (0.2-1.3) 06/01/17 05:00 GGT 22 U/L (8-78) 05/31/17 05:20 AST 33 U/L (14-36) 06/01/17 05:00 ALT 58 U/L (9-52) H 06/01/17 05:00 Alkaline Phosphatase 129 U/L (38-126) H 06/01/17 05:00 Troponin I < 0.0120 ng/mL (0.00-0.120) 05/30/17 12:28 Total Protein 6.3 G/DL (6.3-8.2) 06/01/17 05:00 Albumin 3.6 g/dL (3.5-5.0) 06/01/17 05:00 Globulin 2.7 gm/dL (2.2-3.9) 06/01/17 05:00 Albumin/Globulin Ratio 1.3 (1.0-2.1) 06/01/17 05:00 Triglycerides 235 mg/DL (0-149) H 05/31/17 05:20 Cholesterol 79 mg/dL (0-199) 05/31/17 05:20 LDL Cholesterol Direct < 30 mg/dL (0-129) 05/31/17 05:20 HDL Cholesterol 25 MG/DL (30-70) L 05/31/17 05:20 Vitamin B12 833 pg/mL (239-931) 05/30/17 10:22 25-OH Vitamin D Total 29.4 NG/ML (30.0-100.0) L 05/31/17 05:20 Folate 18.2 ng/mL 05/30/17 10:22 Free T4 6.93 ng/dL (0.78-2.19) H 05/31/17 05:20 Thyroxine (T4) 22.3 ug/dl (5.5-11.0) H 06/01/17 05:00 Free T3 pg/mL > 22.80 pg/mL (2.77-5.27) H 05/31/17 05:20 Total T3 > 7.81 nmol/L (1.49-2.60) H 05/30/17 10:22 Thyroglobulin, Quant 1153.1 ng/mL (2.8-40.9) H 05/31/17 05:20 TSH 3rd Generation < 0.02 mIU/ML (0.46-4.68) L 06/01/17 05:00 Thyroid Stim Immunoglob 443 % baseline (<140) H 05/31/17 05:20 Serum HCG, Qual Negative (NEGATIVE) 05/30/17 10:22 Thyroperoxidase Ab 217 IU/mL (<9) H 05/31/17 05:20 Thyroglobulin Antibody <1 IU/mL (< OR = 1) 05/31/17 05:20 - Date & Time of H&P Date of H&P: 05/31/17 Time of H&P: 14:50 Discharge Exam - Head Exam Head Exam: NORMAL INSPECTION Discharge Plan - Discharge Medications Prescriptions: Insulin Lispro [Humalog Kwikpen U-100] 20 unit SQ ACTID #1 insuln.pen Insulin Detemir [Levemir] 40 units SC HS #1 vial methIMAzole [Tapazole] 20 mg PO BID #120 tab - Follow Up Plan Condition: STABLE Disposition: HOME/ ROUTINE Patient education suggested?: Yes Additional Instructions: patient cleared for discharge to Home today by and Rx for all meds sent to [facility] pt. will f/u with pmd in 1-2 weeks f/u appointment with in August Rx for insulin BD syringes/ meds provided Referrals: Cinthya Almonte MD [Primary Care Provider] - Alyson Odom MD [Medical Doctor] -
== END 2017-06-02 16:29 | disposition home or self-care (01) | DRG 566 ==
LOC: H.ER 09:02 → H.ERHOLD 15:17 → H.TEL 17:29
PROVIDERS: ADMIT Internal Medicine Pulmonary Disease; ATTEND Internal Medicine Pulmonary Disease
DX: E05.00 Thyrotoxicosis with diffuse goiter without thyrotoxic crisis or storm (principal); E11.00 Type 2 diabetes mellitus with hyperosmolarity without nonketotic hyperglycemic-hyperosmolar coma (NKHHC); E11.649 Type 2 diabetes mellitus with hypoglycemia without coma; E86.0 Dehydration; E11.65 Type 2 diabetes mellitus with hyperglycemia; E06.3 Autoimmune thyroiditis; E78.5 Hyperlipidemia, unspecified; F41.1 Generalized anxiety disorder; R10.2 Pelvic and perineal pain; I10 Essential (primary) hypertension; S89.92XA Unspecified injury of left lower leg, initial encounter; X50.1XXA Overexertion from prolonged static or awkward postures, initial encounter; Y93.9 Activity, unspecified; Y92.9 Unspecified place or not applicable; Z79.4 Long term (current) use of insulin; Z87.891 Personal history of nicotine dependence; F45.9 Somatoform disorder, unspecified; G43.909 Migraine, unspecified, not intractable, without status migrainosus; L40.9 Psoriasis, unspecified; S86.912A Strain of unspecified muscle(s) and tendon(s) at lower leg level, left leg, initial encounter; R00.2 Palpitations; R07.2 Precordial pain

== ENCOUNTER 2017-08-09 12:06 | Emergency (ER) | payer MEDICAID ==
[2017-08-09 12:06] VITALS: BMI 23.9
[2017-08-09 12:16] VITALS: TEMP 97.9
[2017-08-09] MEDS ORDERED: Sodium Chloride 0.9% 1,000 ML IV ONE (12:45)
[2017-08-09 13:08] LABS: ABG ALLEN TEST YES; ARTERIAL BLOOD GAS HCO3 24.7 mmol/L (21-28); ARTERIAL BLOOD GAS PH 7.39 (7.35-7.45); ARTERIAL BLOOD GAS PO2 85 mm/Hg (80-100)
[2017-08-09 13:38] LABS: BASO % 0.3 % (0.0-2.0); EOS # 0.1 K/uL (0.0-0.7); EOS % 0.7 % (0.0-4.0); HEMATOCRIT 38.1 % (34.0-47.0); LYMPH # 3.6 K/uL (1.0-4.3); LYMPH % 41.9 % (20.0-40.0); MEAN CELL VOLUME 73.4 fl (81.0-99.0); MEAN CORPUSCULAR HEMOGLOBIN 23.5 pg (27.0-31.0); MONO # 0.8 K/uL (0.0-0.8); MONO % 9.3 % (0.0-10.0); NEUT # 4.1 K/uL (1.8-7.0); NEUT % 47.8 % (50.0-75.0); NRBC % 0.1 % (0.0-0.0); RED CELL DISTRIBUTION WIDTH 13.7 % (11.5-14.5); WHITE BLOOD COUNT 8.5 K/uL (4.8-10.8)
--- NOTE | 2017-08-09 13:42 | ED PDOC ---
HPI: Chest Pain Time Seen by Provider: 08/09/17 12:26 Chief Complaint (Nursing): Chest Pain Chief Complaint (Provider): Chest pain History Per: Patient History/Exam Limitations: no limitations Onset/Duration Of Symptoms: Hrs Current Symptoms Are (Timing): Still Present Additional History Per: Patient Additional Complaint(s): 27yo female, recently diagnosed with IDDM, presents to the ED for evaluation of chest pain. Patient states she has been taking insulin since her diagnosis and has been taking Novolin 3x a day with her meals. Patient states this morning, she could not find her insulin and subsequently felt chest pain and tightness. She denies any nausea, vomiting, diarrhea, fever, chills, burning upon urination. No other complaints. Past Medical History Reviewed: Historical Data, Nursing Documentation, Vital Signs Vital Signs: Last Vital Signs Temp 97.9 F 08/09/17 12:12 Pulse 124 H 08/09/17 12:22 Resp 18 08/09/17 12:12 BP 140/72 08/09/17 12:22 Pulse Ox 97 08/09/17 13:45 - Medical History PMH: Anxiety, HTN, Hyperthyroidism, Migraine Denies: Chronic Kidney Disease - Surgical History Surgical History: No Surg Hx - Family History Family History: States: No Known Family Hx, Unknown Family Hx - Home Medications Home Medications: Ambulatory Orders Medication Instructions Recorded Acetaminophen/Butalbital/Caf 1 tab PO Q6 PRN #30 tab 06/18/15 [Fioricet] Alprazolam [Xanax] 0.25 mg PO DAILY PRN 05/30/17 Metoprolol Succinate [Toprol XL] 50 mg PO DAILY 05/30/17 Insulin Detemir [Levemir] 40 units SC HS #1 vial 06/02/17 Insulin Lispro [Humalog Kwikpen 20 unit SQ ACTID #1 insuln.pen 06/02/17 U-100] methIMAzole [Tapazole] 20 mg PO BID #120 tab 06/02/17 - Allergies Allergies/Adverse Reactions: Allergies Allergy/AdvReac Type Severity Reaction Status Date / Time morphine AdvReac VOMITING Verified 05/30/17 09:36 Review of Systems ROS Statement: Except As Marked, All Systems Reviewed And Found Negative Constitutional: Negative for: Fever, Chills Cardiovascular: Positive for: Chest Pain Respiratory: Negative for: Shortness of Breath Gastrointestinal: Negative for: Nausea, Vomiting, Diarrhea Genitourinary Female: Negative for: Dysuria Physical Exam - Reviewed Nursing Documentation Reviewed: Yes Vital Signs Reviewed: Yes - Physical Exam Appears: Positive for: Non-toxic, No Acute Distress Head Exam: Positive for: ATRAUMATIC, NORMAL INSPECTION, NORMOCEPHALIC Skin: Positive for: Normal Color Eye Exam: Positive for: Normal appearance Neck: Positive for: Supple Cardiovascular/Chest: Positive for: Regular Rate, Rhythm Respiratory: Positive for: Normal Breath Sounds. Negative for: Respiratory Distress Gastrointestinal/Abdominal: Positive for: Soft Neurologic/Psych: Positive for: Alert, Oriented. Negative for: Motor/Sensory Deficits - Laboratory Results Result Diagrams: 08/09/17 12:35 08/09/17 12:35 - ECG O2 Sat by Pulse Oximetry: 97 (RA) Pulse Ox Interpretation: Normal - Progress Condition: Re-examined, Improving,but remains with symptoms - Critical Care Total Time (In Min): 30 Comments: patient presented to the ER with chest pain and tachycardia, along with high Glucose due to forgetting to take her insulin supplies with her before going to work. Medical Decision Making Medical Decision Making: Time: 1235 Impression: Chest pain Plan: -- Initial glucose was around 400 and patient to be given IVF. -- ABG -- CMP -- Troponin -- Chest x-ray Reassess Time: 1310 ABG indicates blood pH at 7.39 and lactate levels of 0.8 Patient to be hydrated further and reassessed. Scribe Attestation: Documented by Chel Turner acting as a scribe for Isabel Jackson MD. Provider Attestation: All medical record entries made by the Scribe were at my direction and personally dictated by me. I have reviewed the chart and agree that the record accurately reflects my personal performance of the history, physical exam, medical decision making, and the department course for this patient. I have also personally directed, reviewed, and agree with the discharge instructions and disposition. patient is feeling better despite milder tachycardia. Will discharge Disposition - Clinical Impression Clinical Impression: Hyperglycemia - Patient ED Disposition Is Patient to be Admitted: No Doctor Will See Patient In The: Office Counseled Patient/Family Regarding: Diagnosis, Need For Followup - Disposition Disposition: Routine/Home Disposition Time: 15:43 Condition: IMPROVED Instructions: Diabetes Mellitus Type 1 in Adults (ED) Forms: [facility] ([place]) - POA Present On Arrival: None
[2017-08-09 13:49] LABS: ALKALINE PHOSPHATASE 185 U/L (38-126); ALT/SGPT 57 U/L (9-52); AST/SGOT 21 U/L (14-36); BILIRUBIN,TOTAL 0.3 mg/dl (0.2-1.3); BLOOD UREA NITROGEN 13 mg/dl (7-17); CARBON DIOXIDE 25 mmol/L (22-30); CHLORIDE 102 mmol/L (98-107); GFR AFRICAN-AMERICAN > 60; GLUCOSE,RANDOM 313 mg/dL (65-105); POTASSIUM 4.2 MMOL/L (3.6-5.0); SODIUM 134 mmol/l (132-148); TOTAL PROTEIN 6.2 G/DL (6.3-8.2)
[2017-08-09] MEDS ORDERED: Sodium Chloride 0.9% 1,000 ML IV STA (13:59)
[2017-08-09 14:09] LABS: ALB/GLOB RATIO 1.3 (1.0-2.1)
[2017-08-09 15:19] LABS: RBC URINE < 1 /hpf (0-3); URINE BILIRUBIN NEGATIVE (NEGATIVE); URINE BLOOD NEGATIVE (NEGATIVE); URINE COLOR STRAW (YELLOW); URINE GLUCOSE (UA) >=500 mg/dL (Normal); URINE KETONE NEGATIVE (NEGATIVE); URINE LEUKOCYTE ESTERASE NEG Leu/uL (Negative); URINE PROTEIN NEGATIVE (NEGATIVE); URINE UROBILINOGEN 0.2-1.0 mg/dL (0.2-1.0); WBC URINE < 1 /hpf (0-5)
[2017-08-09 16:13] VITALS: BP 143/76; PULSE 110; RESP 17; O2SAT 99
--- NOTE | 2017-08-10 10:17 | RAD ---
PROCEDURE: CHEST RADIOGRAPH, 1 VIEW HISTORY: chest pain, new onset DM COMPARISON: Chest radiograph 05/30/2017. FINDINGS: LUNGS: No acute infiltrate appreciated bilaterally. PLEURA: No pneumothorax or pleural fluid seen. CARDIOVASCULAR: There is some prominence of the upper left heart border potentially representing pulmonary artery prominence or potentially other pathology. Follow-up chest is advised with contrast for additional characterization on elective basis. OSSEOUS STRUCTURES: No significant abnormalities. VISUALIZED UPPER ABDOMEN: Normal. OTHER FINDINGS: None. IMPRESSION: Although no acute infiltrate, pleural effusion or pneumothorax is appreciated, prominence of the upper left heart border is appreciated in a pattern that may reflect prominence of the pulmonary artery outflow tract or even lymphadenopathy. Remainder the chest radiographs unremarkable follow-up chest CT with contrast is advised for better characterization of this finding.
--- NOTE | 2017-08-11 18:01 | CARD ---
APPROVED REPORT EKG Measurement Heart [id number] <Conclusion> Sinus tachycardia Otherwise normal ECG
== END 2017-08-09 16:12 | disposition home or self-care (01) ==
LOC: H.ER 12:06
DX: E11.65 Type 2 diabetes mellitus with hyperglycemia (principal); Z79.4 Long term (current) use of insulin; E05.90 Thyrotoxicosis, unspecified without thyrotoxic crisis or storm; F41.9 Anxiety disorder, unspecified; I10 Essential (primary) hypertension
CPT/HCPCS: 36600; 71010; 80053; 81003; 81025; 82803; 82948; 84484; 85025; 93005; 96360; 96361; 99284; J7040

== ENCOUNTER 2017-12-04 13:58 | Emergency (ER) | payer OTHER, MEDICAID ==
[2017-12-04 13:58] VITALS: BMI 23.9
[2017-12-04 14:02] VITALS: BP 168/116; PULSE 130; RESP 16; TEMP 98; O2SAT 100
== END 2017-12-04 14:40 | disposition left against medical advice (07) ==
LOC: H.ER 13:58
DX: Z02.89 Encounter for other administrative examinations (principal)

== ENCOUNTER 2018-01-15 01:53 | Inpatient (IN) | payer MEDICAID, OTHER ==
[2018-01-15 02:11] VITALS: BMI 26.5
[2018-01-15] MEDS ORDERED: Sodium Chloride 0.9% 1,000 ML IV STA ×2 (02:12→02:38)
[2018-01-15] MEDS ORDERED: Propranolol 1 mg/mL Inj IV ONE (02:28)
[2018-01-15 02:33] LABS: BASO % 0.1 % (0.0-2.0); LYMPH # 1.1 K/uL (1.0-4.3); LYMPH % 6.1 % (20.0-40.0); MEAN CELL VOLUME 77.9 fl (81.0-99.0); MEAN CORPUSCULAR HEMOGLOBIN 23.8 pg (27.0-31.0); MEAN CORPUSCULAR HGB CONC 30.5 g/dL (33.0-37.0); MEAN PLATELET VOLUME 10.4 fl (7.2-11.7); MONO # 1.9 K/uL (0.0-0.8); MONO % 10.2 % (0.0-10.0); NEUT # 15.4 K/uL (1.8-7.0); NEUT % 83.6 % (50.0-75.0); NRBC % 0.1 % (0.0-0.0); PLATELET COUNT 281 K/uL (130-400); RBC 6.33 Mil/uL (3.80-5.20); RED CELL DISTRIBUTION WIDTH 15.3 % (11.5-14.5); WHITE BLOOD COUNT 18.4 K/uL (4.8-10.8)
[2018-01-15] MEDS ORDERED: SODIUM CHLORIDE 0.9% IV SCH (02:45)
[2018-01-15] MEDS ORDERED: PROPRANOLOL IV SCH (02:45)
[2018-01-15 02:46] LABS: VENOUS BLOOD GAS BASE EXCESS -26.2 mmol/L (0.0-2.0); VENOUS BLOOD GAS PCO2 18 mmHg (40-60); VENOUS BLOOD GAS PO2 50 mm/Hg (30-55); VENOUS BLOOD PH 6.97 (7.32-7.43)
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
[2018-01-15] MEDS ORDERED: Insulin Regular 100 units/ml SC STA (02:51)
[2018-01-15] MEDS ORDERED: Glucagon Recombinant 1 mg Inj IM PRN (02:52)
[2018-01-15] MEDS ORDERED: Dextrose 50% SYRINGE Inj (50 ml) IV PRN (02:52)
[2018-01-15] MEDS ORDERED: Insulin Regular 100 units/ml ONE (02:55)
[2018-01-15 02:57] LABS: T4 20.3 ug/dl (5.5-11.0)
[2018-01-15 03:29] LABS: ALB/GLOB RATIO 1.4 (1.0-2.1); ALBUMIN 4.5 g/dL (3.5-5.0); ALT/SGPT 47 U/L (9-52); AST/SGOT 19 U/L (14-36); BLOOD UREA NITROGEN 22 mg/dl (7-17); CALCIUM 10.7 mg/dL (8.4-10.2); GFR AFRICAN-AMERICAN > 60; GFR NON-AFRICAN AMERICAN > 60
[2018-01-15] MEDS ORDERED: Sodium Bicarbonate 7.5% (0.9 MEQ/ML) 50ML INJ IV ONE (03:29)
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
[2018-01-15] MEDS ORDERED: Piperacillin/Tazobact 4.5 GM in Sodium Chloride 0.9% 100 ML IVPB STA (03:39)
[2018-01-15 03:43] LABS: LYMPHOCYTE 6 % (20-50); MONOCYTE 6 % (0-10); NEUTROPHIL 86 % (42-75); REACTIVE LYMPHOCYTES 2 % (0-0); TOTAL CELLS COUNTED 100
[2018-01-15 03:46] LABS: PLATELET ESTIMATE NORMAL (NORMAL)
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
[2018-01-15 03:51] LABS: SQUAMOUS EPITHIAL 2 /hpf (0-5); URINE BACTERIA RARE (<OCC); URINE BILIRUBIN NEGATIVE (NEGATIVE); URINE BLOOD SMALL (NEGATIVE); URINE CLARITY SLIGHTY-CLOUDY (Clear); URINE COLOR YELLOW (YELLOW); URINE GLUCOSE (UA) >=500 mg/dL (Normal); URINE LEUKOCYTE ESTERASE NEG Leu/uL (Negative); URINE PROTEIN 100 mg/dL (NEGATIVE); URINE UROBILINOGEN 0.2-1.0 mg/dL (0.2-1.0)
[2018-01-15 03:57] LABS: BARBITURATES, UR NEGATIVE (NEGATIVE); BENZODIAZEPINES, UR NEGATIVE (NEGATIVE); OPIATES, UR NEGATIVE (NEGATIVE); PHENCYCLIDINE, UR NEGATIVE (NEGATIVE)
[2018-01-15] MEDS ORDERED: Lactated Ringer's 1,000 ML IV SCH (04:00)
[2018-01-15] MEDS ORDERED: Propranolol 60 mg ER Cap PO PRN (04:15)
[2018-01-15] MEDS ORDERED: Dexamethasone 1 MG in Sodium Chloride 0.9% 50 ML IV SCH (04:30)
[2018-01-15] MEDS: Cholestyramine 4 gm/Pkt UD PO SCH ×4 (05:41→21:42)
[2018-01-15 07:58] LABS: HEMOGLOBIN 15.2 g/dL (12.0-16.0); MEAN CELL VOLUME 77.5 fl (81.0-99.0); MEAN CORPUSCULAR HEMOGLOBIN 23.8 pg (27.0-31.0); MEAN CORPUSCULAR HGB CONC 30.7 g/dL (33.0-37.0); RBC 6.37 Mil/uL (3.80-5.20); RED CELL DISTRIBUTION WIDTH 15.4 % (11.5-14.5); WHITE BLOOD COUNT 18.8 K/uL (4.8-10.8)
[2018-01-15 08:10] LABS: BLOOD UREA NITROGEN 18 mg/dl (7-17); CALCIUM 11.3 mg/dL (8.4-10.2); GFR AFRICAN-AMERICAN > 60; GFR NON-AFRICAN AMERICAN > 60
[2018-01-15] MEDS ORDERED: Metoprolol 1 mg/ml Inj IVP STA ×2 (08:28→11:01)
--- NOTE | 2018-01-15 08:47 | RAD ---
HISTORY: chest pain COMPARISON: Frontal chest radiograph 08/09/2017. FINDINGS: LUNGS: No active pulmonary disease. PLEURA: No significant pleural effusion identified, no pneumothorax apparent. CARDIOVASCULAR: Normal. OSSEOUS STRUCTURES: No significant abnormalities. VISUALIZED UPPER ABDOMEN: Normal. OTHER FINDINGS: Bilateral radiodense nipple rings suspected. IMPRESSION: No interval acute cardiopulmonary disease appreciated.
[2018-01-15] MEDS ORDERED: Sodium Chloride 0.9% 500 ML IV SCH (09:00)
--- NOTE | 2018-01-15 09:16 | CARD ---
APPROVED REPORT EKG Measurement Heart [id number] <Conclusion> Sinus tachycardia Otherwise normal ECG
[2018-01-15 09:21] LABS: BLOOD UREA NITROGEN 18 mg/dl (7-17); CALCIUM 11.3 mg/dL (8.4-10.2); GFR AFRICAN-AMERICAN > 60; GFR NON-AFRICAN AMERICAN > 60
[2018-01-15 09:44] LABS: ABG ALLEN TEST YES; ARTERIAL BLOOD GAS HCO3 15.6 mmol/L (21-28); ARTERIAL BLOOD GAS HEMOGLOBIN 14.2 g/dL (11.7-17.4); ARTERIAL BLOOD GAS O2 CAPACITY 19.2 mL/dL (16-24); ARTERIAL BLOOD GAS O2 CONTENT 19.2 ML/dL (15-23); ARTERIAL BLOOD GAS O2 SAT 100.1 % (95-98); ARTERIAL BLOOD GAS PCO2 26 mm/Hg (35-45); ARTERIAL BLOOD GAS PO2 107 mm/Hg (80-100); ARTERIAL BLOOD GAS TCO2 13.6 mmol/L (22-28)
[2018-01-15] MEDS: Potassium Ch 20mEq in D5-1/2NS 1,000 ML IV SCH ×3 (09:45→23:28)
[2018-01-15] MEDS ORDERED: Dexamethasone 4 mg/1 ml ONE (10:39)
[2018-01-15] MEDS: Dexamethasone 4 mg/1 ml IVP SCH ×4 (10:42→21:39)
[2018-01-15] MEDS ORDERED: Metoprolol 1 mg/ml Inj IVP ONE (11:05)
--- NOTE | 2018-01-15 15:49 | CON ---
DATE: ENDOCRINOLOGY CONSULTATION LOCATION: ICU room 424. HISTORY OF PRESENT ILLNESS: This is a 27-year-old female with known history of type 1 insulin-dependent diabetes with very poor adherence and compliance to her insulin regimen, presenting here with generalized body weakness and confusion and disorientation and was evaluated to be in diabetic ketoacidosis with possible thyroid storm and marked tachycardia and overt hyperthyroidism. PAST MEDICAL HISTORY: As mentioned above, history of type 1 insulin-dependent diabetes on a combination of Levemir taken as 40 units at bedtime with Humalog given as 20 units t.i.d. before meals, history of hyperthyroidism related to Graves' disease and has been on Tapazole taken very inconsistently at 30 mg b.i.d., history of hypertension and dyslipidemia. FAMILY HISTORY: Positive for hypertension and diabetes. SOCIAL HISTORY: The patient has supportive mother who is very attentive to her needs and actually brought the patient into the hospital for a closer evaluation and management. She has significant history of polysubstance abuse with nicotine dependence and cocaine usage. REVIEW OF SYSTEMS: As mentioned above. Admits to generalized body weakness with easy fatigability and tiredness and suboptimal energy level. Also admits to dizziness and lightheadedness, worse on the day of admission. Moreover, admits to bifrontal headaches with visual blurring, again worse in the day or so prior to admission. No chest pains or palpitations or PND. Her oral intake, however, has been variable with nausea, dyspepsia, and episodic vomiting episodes. Also admits to marked polyuria, nocturia, polydipsia, and weight loss. PHYSICAL EXAMINATION: GENERAL: This is an average built female in no apparent distress. VITAL SIGNS: With the blood pressure of 140/80, pulse of 100 beats per minute regular, temperature of 98, respirations of 20, height is 5 feet 3 inches, and weight is 150 pounds. HEENT: Head normocephalic. Eyes are anicteric with pink conjunctivae. Funduscopy at this time. Ears, nose and throat: Otherwise normal. NECK: Supple. Thyroid gland shows nodular thyromegaly, which is firm and nontender with no overt thyroid nodules at this time nor any cervical adenopathy noted. CARDIOPULMONARY: Some adynamic precordium. S1 and S2 is rapid and regular. Lungs are clear to auscultation. ABDOMEN: Flat, soft with positive bowel sounds. EXTREMITIES: No peripheral edema. Pulses are +2 bilaterally. LABORATORY DATA: The latest chemistry showed BUN of 18, sodium of 151, potassium of 3.7, chloride of 115, CO2 is 7, glucose is 145, and creatinine is 0.5. The glucose levels have ranged from 145 mg/dL to 160 mg/dL. Her thyroid studies showed T4 of 20.3 with the TSH of less than 0.02. Calcium is 11.3. ASSESSMENT: This is a 27-year-old female with uncontrolled and decompensated type 1 insulin-dependent diabetes presenting here with diabetic ketoacidosis and dehydration, with spurious hypernatremia as noted related to very poor adherence to the insulin regimen as noted and also recent drug omission as per the family. Moreover, she also has marked hyperthyroidism both historically, clinically, and biochemically related again to poor adherence to her medical therapy for hyperthyroidism as noted. She, most likely, has underlying Graves' disease with autoimmune thyroiditis with a concomitant diffuse toxic goiter as noted. PLAN OF MANAGEMENT: We will continue the insulin drip infusion as ordered and we would recommend to follow the DKA algorithm 1 protocol as ordered. We will also continue with the vigorous IV hydration and would actually recommend normal saline at 4 mL/hour alternating with half-normal saline with KCl 40 mEq running at 200 mL/hour as ordered. We would continue the Tapazole given at suprapharmacologic dose of 20 mg every 6 hours as ordered. We will continue the beta adrenergic blockade as ordered. We would continue the low-dose prophylactic infusion of Decadron medications as given. We will obtain a repeat thyroid hormonal profile with the T4, TSH and free T4 with a thyroid stimulating immunoglobulin and thyroid peroxidase antibody, which will confirm and/or indicate the presence of underlying thyroid autoimmunity. We will obtain serial chemistries and supplement accordingly as needed. We will follow. Kenzie Alanis MD
[2018-01-15 15:59] LABS: VENOUS BLOOD GAS BASE EXCESS -7.6 mmol/L (0.0-2.0); VENOUS BLOOD GAS PCO2 33 mmHg (40-60); VENOUS BLOOD GAS PO2 65 mm/Hg (30-55); VENOUS BLOOD PH 7.33 (7.32-7.43)
[2018-01-15 16:34] LABS: ALB/GLOB RATIO 1.2 (1.0-2.1); ALBUMIN 3.3 g/dL (3.5-5.0); ALT/SGPT 44 U/L (9-52); AST/SGOT 13 U/L (14-36); BLOOD UREA NITROGEN 13 mg/dl (7-17); CALCIUM 10.7 mg/dL (8.4-10.2); GFR AFRICAN-AMERICAN > 60; GFR NON-AFRICAN AMERICAN > 60
[2018-01-16] MEDS: Cholestyramine 4 gm/Pkt UD PO SCH ×2 (04:24→09:36)
[2018-01-16] MEDS: Dexamethasone 4 mg/1 ml IVP SCH ×5 (04:27→21:31)
[2018-01-16 05:53] LABS: HEMOGLOBIN 13.3 g/dL (12.0-16.0); MEAN CELL VOLUME 74.3 fl (81.0-99.0); MEAN CORPUSCULAR HEMOGLOBIN 23.8 pg (27.0-31.0); RBC 5.59 Mil/uL (3.80-5.20); RED CELL DISTRIBUTION WIDTH 15.1 % (11.5-14.5); WHITE BLOOD COUNT 10.2 K/uL (4.8-10.8)
[2018-01-16 06:04] LABS: T4 18.6 ug/dl (5.5-11.0)
[2018-01-16 06:31] LABS: ALB/GLOB RATIO 1.1 (1.0-2.1); ALBUMIN 3.2 g/dL (3.5-5.0); ALT/SGPT 31 U/L (9-52); AST/SGOT 19 U/L (14-36); BLOOD UREA NITROGEN 10 mg/dl (7-17); CALCIUM 10.5 mg/dL (8.4-10.2); GFR AFRICAN-AMERICAN > 60; GFR NON-AFRICAN AMERICAN > 60
[2018-01-16] MEDS: Potassium Chl 20 mEq in D5-NS 1,000 ML IV SCH ×2 (06:51→20:51)
--- NOTE | 2018-01-16 10:54 | CP.PCM.PN ---
Subjective - Date & Time of Evaluation Date of Evaluation: 01/16/18 Time of Evaluation: 10:54 - Subjective Subjective: pt somnolent, easily arousable, however refuses to answer questions HD stable AG closed, off insulin drip, on home meds thyroid storm NAD Objective - Vital Signs/Intake and Output Vital Signs (last 24 hours): Temp Pulse Resp BP Pulse Ox 98.9 F 99 H 24 172/99 H 98 01/16/18 08:00 01/16/18 10:00 01/16/18 10:00 01/16/18 10:40 01/16/18 10:00 Intake and Output: 01/16/18 01/16/18 06:59 18:59 Intake Total 2730 Output Total 1000 200 Balance 1730 -200 General: awake,refusing to answer questions, does not appear to be in any distress HEENT: NCAT, PERRL, EOMI HEART: RRR, S1, S2 no MRG LUNG: CTAB, no WRR ABD: soft, NT, ND, no mass, no HSM EXT: warm, well perfused NEURO: awake, alert SKIN: warm, dry PSYCH: normal mood, normal affect - Medications Medications: Current Medications Acetaminophen (Tylenol 325mg Tab) 650 mg PO Q6 PRN PRN Reason: Fever >100.4 F Cholestyramine Resin (Questran) 4 gm PO Q6H [facility] Last Admin: 01/16/18 09:36 Dose: 4 gm Dexamethasone (Decadron Inj) 1 mg IVP Q6H [facility] Last Admin: 01/16/18 09:36 Dose: 1 mg Dextrose (Dextrose 50% Inj) 0 ml IV STAT PRN; Protocol PRN Reason: Hypoglycemia Protocol Dextrose (Glutose 15) 0 gm PO ONCE PRN; Protocol PRN Reason: Hypoglycemia Protocol Glucagon (Glucagen Diagnostic Kit) 0 mg IM STAT PRN; Protocol PRN Reason: Hypoglycemia Protocol Propranolol HCl 1 mg/ Sodium (Chloride) 51 mls @ 306 mls/hr IV ONCE [facility] Last Admin: 01/15/18 04:05 Dose: 306 mls/hr Insulin Human Regular 100 (units/ Sodium Chloride) 101 mls @ 6.06 mls/hr IV .[id number] PARAG; 6 UNITS/HR PRN Reason: Protocol Last Titration: 01/16/18 06:30 Dose: 5.94 units/hr, 5.99 mls/hr Potassium Chloride/Dextrose/Sod Cl (Potassium Chl 20 Meq In D5-Ns) 1,000 mls @ 75 mls/hr IV .[id number] [facility] Stop: 01/16/18 19:19 Last Admin: 01/16/18 06:51 Dose: 75 mls/hr Insulin Detemir (Levemir) 20 units SC HS PARAG Insulin Human Lispro (Humalog) 10 units SC ACTID [facility] Methimazole (Tapazole) 20 mg PO Q6H [facility] Last Admin: 01/16/18 09:37 Dose: 20 mg Ondansetron HCl (Zofran Inj) 4 mg IVP Q6H PRN PRN Reason: Nausea/Vomiting Last Admin: 01/16/18 09:40 Dose: 4 mg Propranolol HCl (Inderal) 60 mg PO Q6H [facility] Last Admin: 01/16/18 06:23 Dose: 60 mg - Labs Labs: 01/16/18 05:00 01/16/18 05:00 Assessment and Plan - Assessment and Plan (Free Text) Plan: 27 y/o noncompliant female with DM1 and hyperthyroidism admitted for with DKA and thyroid storm. 1) Thyroid storm -Proproanolol 60 mg PO q6h PRN for tachycardia -Methimazole 20 mg PO q6h started -Decadron 1 mg IV q6h started -Cholestyramin 4 g q6h PO discontinued - Dr. Alanis Endocrinology consult appreciated and followed 2) DKA -Insulin drip discontinued and placed back on Levemir and short acting -complex carb diet -Repeat BMP, ABG in AM -Consult Dr. Alanis for the thyroid storm and dka 3) DVT PPx -- SCDs
--- NOTE | 2018-01-16 11:09 | CP.CCUPN ---
CCU Subjective - Physician Review Subjective (Free Text): 01/16/18 11:09 The patient was Seen/interviewed and examined by me at the bedside during ICU round, Medical records reviewed and Management issues were discussed and formulated with the house staff. Events reviewed Patient awake, comfortable, no distress, no fever, no vomiting, follow commands. Clinically and hemodynamically improved No Vasopressors Off insulin drip Afebrile Patient Restarted on Home insulin at half of the dose of Levemir and Aspart CCU Objective - Vital Signs / Intake & Output Vital Signs (Last 4 hours): Vital Signs Temp Pulse Resp BP Pulse Ox 01/16/18 10:40 172/99 H 01/16/18 10:00 99 H 24 170/107 H 98 01/16/18 08:00 98.9 F 95 H 24 123/67 99 Intake and Output (Last 8hrs): Intake & Output 01/15/18 01/16/18 01/16/18 22:59 06:59 14:59 Intake Total 2194 1712 Output Total 400 600 200 Balance 1794 1112 -200 Intake: IV 1386 1200 Intake, Piggyback 18 12 Oral 790 500 Output: Urine 400 600 Urine, Voided 400 600 Emesis 200 Other: # Voids Urine, Voided 1 1 # Bowel Movements 0 - Physical Exam Head: Positive for: Atraumatic, Normocephalic. Negative for: Tenderness, Contusion, Swelling Pupils: Positive for: PERRL. Negative for: Sluggish, Non-Reactive Extroacular Muscles: Positive for: EOMI Conjunctiva: Positive for: Normal Mouth: Positive for: Moist Mucous Membranes. Negative for: Dry Neck: Positive for: Normal Range of Motion, Trachea Midline. Negative for: Meningeal Signs, MIDLINE TENDERNESS, Paraspinal Tenderness, JVD, Lymphadenopathy , Bruit, Other Respiratory/Chest: Positive for: Clear to Auscultation, Good Air Exchange. Negative for: Respiratory Distress, Accessory Muscle Use, Wheezes, Decreased Breath Sounds, Rales, Retracting Cardiovascular: Positive for: Regular Rate and Rhythm, Normal S1, S2. Negative for: Murmurs, Irregular Rhythm, Peripheal Pulses Present, Tachycardic, Bradycardic Abdomen: Positive for: Normal Bowel Sounds. Negative for: Tenderness, Distention, Peritoneal Signs, Rebound, Guarding Upper Extremity: Positive for: Normal ROM, NORMAL PULSES. Negative for: Edema Lower Extremity: Positive for: Edema, NORMAL PULSES, Capillary Refill < 2 s. Negative for: CALF TENDERNESS Neurological: Positive for: GCS=15, CN II-XII Intact, Speech Normal, Motor Func Grossly Intact, Normal Sensory Function Psychiatric: Positive for: Alert, Oriented x 3 - Medications Active Medications: Active Medications Generic Name Dose Route Start Last Admin Trade Name Freq PRN Reason Stop Dose Admin Acetaminophen 650 mg 01/15/18 04:30 Tylenol 325mg Tab PO Q6 PRN Fever >100.4 F Cholestyramine Resin 4 gm 01/15/18 04:30 01/16/18 09:36 Questran PO 4 gm Q6H PARAG Administration Dexamethasone 1 mg 01/15/18 04:30 01/16/18 09:36 Decadron Inj IVP 1 mg Q6H PARAG Administration Dextrose 0 ml 01/15/18 02:52 Dextrose 50% Inj IV STAT PRN Hypoglycemia Protocol Protocol Dextrose 0 gm 01/15/18 02:52 Glutose 15 PO ONCE PRN Hypoglycemia Protocol Protocol Glucagon 0 mg 01/15/18 02:52 Glucagen Diagnostic Kit IM STAT PRN Hypoglycemia Protocol Protocol Propranolol HCl 1 mg/ Sodium 51 mls @ 306 mls/hr 01/15/18 02:45 01/15/18 04: 05 Chloride IV 306 mls/hr ONCE PARAG Administration Insulin Human Regular 100 101 mls @ 6.06 mls/hr 01/15/18 03:00 01/16/18 06:30 units/ Sodium Chloride IV 5.94 units/hr .[id number] PARAG 5.99 mls/hr Protocol Titration 6 UNITS/HR Potassium Chloride/Dextrose/Sod Cl 1,000 mls @ 75 mls/hr 01/16/18 06:00 01/16 06:51 Potassium Chl 20 Meq In D5-Ns IV 01/16/18 19:19 75 mls/hr .[id number] PARAG Administration Insulin Detemir 20 units 01/16/18 22:00 Levemir SC HS PARAG Insulin Human Lispro 10 units 01/16/18 11:30 Humalog SC ACTID PARAG Methimazole 20 mg 01/15/18 04:15 01/16/18 09:37 Tapazole PO 20 mg Q6H PARAG Administration Ondansetron HCl 4 mg 01/15/18 03:51 01/16/18 09:40 Zofran Inj IVP 4 mg Q6H PRN Administration Nausea/Vomiting Propranolol HCl 60 mg 01/15/18 13:15 01/16/18 06:23 Inderal PO 60 mg Q6H PARAG Administration - Patient Studies Lab Studies: Microbiology Studies 01/15/18 02:36 Blood Culture - Preliminary Blood NO GROWTH AFTER 24 HOURS Lab Studies 01/16/18 01/16/18 01/16/18 Range/Units 10:10 08:32 07:29 WBC (4.8-10.8) K/uL RBC (3.80-5.20) Mil/uL Hgb (12.0-16.0) g/dL Hct (34.0-47.0) % MCV (81.0-99.0) fl MCH (27.0-31.0) pg MCHC (33.0-37.0) g/dL RDW (11.5-14.5) % Plt Count (130-400) K/uL pO2 (30-55) mm/Hg ABG Carboxyhemoglobin (0.5-1.5) % POC ABG HHb (Measured) (0.0-5.0) % ABG Methemoglobin (0.0-3.0) % VBG pH (7.32-7.43) VBG pCO2 (40-60) mmHg VBG HCO3 mmol/L VBG O2 Sat (Calc) (40-65) % VBG Base Excess (0.0-2.0) mmol/L VBG Hgb O2 Saturation (95.0-98.0) % Hemoglobin (11.7-17.4) g/dL Sodium (132-148) mmol/l Potassium (3.6-5.0) MMOL/L Chloride (98-107) mmol/L Carbon Dioxide (22-30) mmol/L Anion Gap (10-20) BUN (7-17) mg/dl Creatinine (0.7-1.2) mg/dl Est GFR ( Amer) Est GFR (Non-Af Amer) POC Glucose (mg/dL) 215 H 181 H 253 H (65-110) mg/dL Random Glucose (65-105) mg/dL Calcium (8.4-10.2) mg/dL Phosphorus (2.5-4.5) mg/dl Total Bilirubin (0.2-1.3) mg/dl AST (14-36) U/L ALT (9-52) U/L Alkaline Phosphatase (38-126) U/L Total Protein (6.3-8.2) G/DL Albumin (3.5-5.0) g/dL Globulin (2.2-3.9) gm/dL Albumin/Globulin Ratio (1.0-2.1) Free T4 (0.78-2.19) ng/dL Thyroxine (T4) (5.5-11.0) ug/dl TSH 3rd Generation (0.46-4.68) mIU/ML 01/16/18 01/16/18 01/16/18 Range/Units 06:28 05:23 05:00 WBC 10.2 (4.8-10.8) K/uL RBC 5.59 H (3.80-5.20) Mil/uL Hgb 13.3 (12.0-16.0) g/dL Hct 41.5 (34.0-47.0) % MCV 74.3 L D (81.0-99.0) fl MCH 23.8 L (27.0-31.0) pg MCHC 32.0 L (33.0-37.0) g/dL RDW 15.1 H (11.5-14.5) % Plt Count 162 (130-400) K/uL pO2 (30-55) mm/Hg ABG Carboxyhemoglobin (0.5-1.5) % POC ABG HHb (Measured) (0.0-5.0) % ABG Methemoglobin (0.0-3.0) % VBG pH (7.32-7.43) VBG pCO2 (40-60) mmHg VBG HCO3 mmol/L VBG O2 Sat (Calc) (40-65) % VBG Base Excess (0.0-2.0) mmol/L VBG Hgb O2 Saturation (95.0-98.0) % Hemoglobin (11.7-17.4) g/dL Sodium (132-148) mmol/l Potassium (3.6-5.0) MMOL/L Chloride (98-107) mmol/L Carbon Dioxide (22-30) mmol/L Anion Gap (10-20) BUN (7-17) mg/dl Creatinine (0.7-1.2) mg/dl Est GFR ( Amer) Est GFR (Non-Af Amer) POC Glucose (mg/dL) 240 H 248 H (65-110) mg/dL Random Glucose (65-105) mg/dL Calcium (8.4-10.2) mg/dL Phosphorus (2.5-4.5) mg/dl Total Bilirubin (0.2-1.3) mg/dl AST (14-36) U/L ALT (9-52) U/L Alkaline Phosphatase (38-126) U/L Total Protein (6.3-8.2) G/DL Albumin (3.5-5.0) g/dL Globulin (2.2-3.9) gm/dL Albumin/Globulin Ratio (1.0-2.1) Free T4 (0.78-2.19) ng/dL Thyroxine (T4) (5.5-11.0) ug/dl TSH 3rd Generation (0.46-4.68) mIU/ML 01/16/18 01/16/18 01/16/18 Range/Units 05:00 05:00 04:22 WBC (4.8-10.8) K/uL RBC (3.80-5.20) Mil/uL Hgb (12.0-16.0) g/dL Hct (34.0-47.0) % MCV (81.0-99.0) fl MCH (27.0-31.0) pg MCHC (33.0-37.0) g/dL RDW (11.5-14.5) % Plt Count (130-400) K/uL pO2 (30-55) mm/Hg ABG Carboxyhemoglobin (0.5-1.5) % POC ABG HHb (Measured) (0.0-5.0) % ABG Methemoglobin (0.0-3.0) % VBG pH (7.32-7.43) VBG pCO2 (40-60) mmHg VBG HCO3 mmol/L VBG O2 Sat (Calc) (40-65) % VBG Base Excess (0.0-2.0) mmol/L VBG Hgb O2 Saturation (95.0-98.0) % Hemoglobin (11.7-17.4) g/dL Sodium 146 (132-148) mmol/l Potassium 3.2 L (3.6-5.0) MMOL/L Chloride 113 H (98-107) mmol/L Carbon Dioxide 19 L (22-30) mmol/L Anion Gap 17 (10-20) BUN 10 (7-17) mg/dl Creatinine 0.3 L (0.7-1.2) mg/dl Est GFR ( Amer) > 60 Est GFR (Non-Af Amer) > 60 POC Glucose (mg/dL) 222 H (65-110) mg/dL Random Glucose 208 H (65-105) mg/dL Calcium 10.5 H (8.4-10.2) mg/dL Phosphorus 4.2 (2.5-4.5) mg/dl Total Bilirubin 0.3 (0.2-1.3) mg/dl AST 19 (14-36) U/L ALT 31 (9-52) U/L Alkaline Phosphatase 100 (38-126) U/L Total Protein 6.2 L (6.3-8.2) G/DL Albumin 3.2 L (3.5-5.0) g/dL Globulin 3.0 (2.2-3.9) gm/dL Albumin/Globulin Ratio 1.1 (1.0-2.1) Free T4 6.13 H (0.78-2.19) ng/dL Thyroxine (T4) 18.6 H (5.5-11.0) ug/dl TSH 3rd Generation < 0.02 L (0.46-4.68) mIU/ML 01/16/18 01/16/18 01/16/18 Range/Units 03:31 02:32 01:30 WBC (4.8-10.8) K/uL RBC (3.80-5.20) Mil/uL Hgb (12.0-16.0) g/dL Hct (34.0-47.0) % MCV (81.0-99.0) fl MCH (27.0-31.0) pg MCHC (33.0-37.0) g/dL RDW (11.5-14.5) % Plt Count (130-400) K/uL pO2 (30-55) mm/Hg ABG Carboxyhemoglobin (0.5-1.5) % POC ABG HHb (Measured) (0.0-5.0) % ABG Methemoglobin (0.0-3.0) % VBG pH (7.32-7.43) VBG pCO2 (40-60) mmHg VBG HCO3 mmol/L VBG O2 Sat (Calc) (40-65) % VBG Base Excess (0.0-2.0) mmol/L VBG Hgb O2 Saturation (95.0-98.0) % Hemoglobin (11.7-17.4) g/dL Sodium (132-148) mmol/l Potassium (3.6-5.0) MMOL/L Chloride (98-107) mmol/L Carbon Dioxide (22-30) mmol/L Anion Gap (10-20) BUN (7-17) mg/dl Creatinine (0.7-1.2) mg/dl Est GFR ( Amer) Est GFR (Non-Af Amer) POC Glucose (mg/dL) 232 H 225 H 241 H (65-110) mg/dL Random Glucose (65-105) mg/dL Calcium (8.4-10.2) mg/dL Phosphorus (2.5-4.5) mg/dl Total Bilirubin (0.2-1.3) mg/dl AST (14-36) U/L ALT (9-52) U/L Alkaline Phosphatase (38-126) U/L Total Protein (6.3-8.2) G/DL Albumin (3.5-5.0) g/dL Globulin (2.2-3.9) gm/dL Albumin/Globulin Ratio (1.0-2.1) Free T4 (0.78-2.19) ng/dL Thyroxine (T4) (5.5-11.0) ug/dl TSH 3rd Generation (0.46-4.68) mIU/ML 01/16/18 01/15/18 01/15/18 Range/Units 00:36 23:23 22:32 WBC (4.8-10.8) K/uL RBC (3.80-5.20) Mil/uL Hgb (12.0-16.0) g/dL Hct (34.0-47.0) % MCV (81.0-99.0) fl MCH (27.0-31.0) pg MCHC (33.0-37.0) g/dL RDW (11.5-14.5) % Plt Count (130-400) K/uL pO2 (30-55) mm/Hg ABG Carboxyhemoglobin (0.5-1.5) % POC ABG HHb (Measured) (0.0-5.0) % ABG Methemoglobin (0.0-3.0) % VBG pH (7.32-7.43) VBG pCO2 (40-60) mmHg VBG HCO3 mmol/L VBG O2 Sat (Calc) (40-65) % VBG Base Excess (0.0-2.0) mmol/L VBG Hgb O2 Saturation (95.0-98.0) % Hemoglobin (11.7-17.4) g/dL Sodium (132-148) mmol/l Potassium (3.6-5.0) MMOL/L Chloride (98-107) mmol/L Carbon Dioxide (22-30) mmol/L Anion Gap (10-20) BUN (7-17) mg/dl Creatinine (0.7-1.2) mg/dl Est GFR ( Amer) Est GFR (Non-Af Amer) POC Glucose (mg/dL) 251 H 241 H 277 H (65-110) mg/dL Random Glucose (65-105) mg/dL Calcium (8.4-10.2) mg/dL Phosphorus (2.5-4.5) mg/dl Total Bilirubin (0.2-1.3) mg/dl AST (14-36) U/L ALT (9-52) U/L Alkaline Phosphatase (38-126) U/L Total Protein (6.3-8.2) G/DL Albumin (3.5-5.0) g/dL Globulin (2.2-3.9) gm/dL Albumin/Globulin Ratio (1.0-2.1) Free T4 (0.78-2.19) ng/dL Thyroxine (T4) (5.5-11.0) ug/dl TSH 3rd Generation (0.46-4.68) mIU/ML 01/15/18 01/15/18 01/15/18 Range/Units 21:35 20:37 19:14 WBC (4.8-10.8) K/uL RBC (3.80-5.20) Mil/uL Hgb (12.0-16.0) g/dL Hct (34.0-47.0) % MCV (81.0-99.0) fl MCH (27.0-31.0) pg MCHC (33.0-37.0) g/dL RDW (11.5-14.5) % Plt Count (130-400) K/uL pO2 (30-55) mm/Hg ABG Carboxyhemoglobin (0.5-1.5) % POC ABG HHb (Measured) (0.0-5.0) % ABG Methemoglobin (0.0-3.0) % VBG pH (7.32-7.43) VBG pCO2 (40-60) mmHg VBG HCO3 mmol/L VBG O2 Sat (Calc) (40-65) % VBG Base Excess (0.0-2.0) mmol/L VBG Hgb O2 Saturation (95.0-98.0) % Hemoglobin (11.7-17.4) g/dL Sodium (132-148) mmol/l Potassium (3.6-5.0) MMOL/L Chloride (98-107) mmol/L Carbon Dioxide (22-30) mmol/L Anion Gap (10-20) BUN (7-17) mg/dl Creatinine (0.7-1.2) mg/dl Est GFR ( Amer) Est GFR (Non-Af Amer) POC Glucose (mg/dL) 246 H 271 H 209 H (65-110) mg/dL Random Glucose (65-105) mg/dL Calcium (8.4-10.2) mg/dL Phosphorus (2.5-4.5) mg/dl Total Bilirubin (0.2-1.3) mg/dl AST (14-36) U/L ALT (9-52) U/L Alkaline Phosphatase (38-126) U/L Total Protein (6.3-8.2) G/DL Albumin (3.5-5.0) g/dL Globulin (2.2-3.9) gm/dL Albumin/Globulin Ratio (1.0-2.1) Free T4 (0.78-2.19) ng/dL Thyroxine (T4) (5.5-11.0) ug/dl TSH 3rd Generation (0.46-4.68) mIU/ML 01/15/18 01/15/18 01/15/18 Range/Units 18:35 17:43 16:39 WBC (4.8-10.8) K/uL RBC (3.80-5.20) Mil/uL Hgb (12.0-16.0) g/dL Hct (34.0-47.0) % MCV (81.0-99.0) fl MCH (27.0-31.0) pg MCHC (33.0-37.0) g/dL RDW (11.5-14.5) % Plt Count (130-400) K/uL pO2 (30-55) mm/Hg ABG Carboxyhemoglobin (0.5-1.5) % POC ABG HHb (Measured) (0.0-5.0) % ABG Methemoglobin (0.0-3.0) % VBG pH (7.32-7.43) VBG pCO2 (40-60) mmHg VBG HCO3 mmol/L VBG O2 Sat (Calc) (40-65) % VBG Base Excess (0.0-2.0) mmol/L VBG Hgb O2 Saturation (95.0-98.0) % Hemoglobin (11.7-17.4) g/dL Sodium (132-148) mmol/l Potassium (3.6-5.0) MMOL/L Chloride (98-107) mmol/L Carbon Dioxide (22-30) mmol/L Anion Gap (10-20) BUN (7-17) mg/dl Creatinine (0.7-1.2) mg/dl Est GFR ( Amer) Est GFR (Non-Af Amer) POC Glucose (mg/dL) 215 H 207 H 201 H (65-110) mg/dL Random Glucose (65-105) mg/dL Calcium (8.4-10.2) mg/dL Phosphorus (2.5-4.5) mg/dl Total Bilirubin (0.2-1.3) mg/dl AST (14-36) U/L ALT (9-52) U/L Alkaline Phosphatase (38-126) U/L Total Protein (6.3-8.2) G/DL Albumin (3.5-5.0) g/dL Globulin (2.2-3.9) gm/dL Albumin/Globulin Ratio (1.0-2.1) Free T4 (0.78-2.19) ng/dL Thyroxine (T4) (5.5-11.0) ug/dl TSH 3rd Generation (0.46-4.68) mIU/ML 01/15/18 01/15/18 01/15/18 Range/Units 15:45 15:28 12:04 WBC (4.8-10.8) K/uL RBC (3.80-5.20) Mil/uL Hgb (12.0-16.0) g/dL Hct (34.0-47.0) % MCV (81.0-99.0) fl MCH (27.0-31.0) pg MCHC (33.0-37.0) g/dL RDW (11.5-14.5) % Plt Count (130-400) K/uL pO2 65 H (30-55) mm/Hg ABG Carboxyhemoglobin 2.2 H (0.5-1.5) % POC ABG HHb (Measured) 3.4 (0.0-5.0) % ABG Methemoglobin 1.0 (0.0-3.0) % VBG pH 7.33 (7.32-7.43) VBG pCO2 33 L (40-60) mmHg VBG HCO3 18.9 mmol/L VBG O2 Sat (Calc) 96.5 H (40-65) % VBG Base Excess -7.6 L (0.0-2.0) mmol/L VBG Hgb O2 Saturation 93.3 L (95.0-98.0) % Hemoglobin 13.1 (11.7-17.4) g/dL Sodium 145 (132-148) mmol/l Potassium 3.5 L (3.6-5.0) MMOL/L Chloride 112 H (98-107) mmol/L Carbon Dioxide 13 L (22-30) mmol/L Anion Gap 24 H (10-20) BUN 13 (7-17) mg/dl Creatinine 0.3 L (0.7-1.2) mg/dl Est GFR ( Amer) > 60 Est GFR (Non-Af Amer) > 60 POC Glucose (mg/dL) 160 H (65-110) mg/dL Random Glucose 196 H (65-105) mg/dL Calcium 10.7 H (8.4-10.2) mg/dL Phosphorus (2.5-4.5) mg/dl Total Bilirubin 0.4 (0.2-1.3) mg/dl AST 13 L D (14-36) U/L ALT 44 (9-52) U/L Alkaline Phosphatase 104 (38-126) U/L Total Protein 6.2 L (6.3-8.2) G/DL Albumin 3.3 L D (3.5-5.0) g/dL Globulin 2.8 (2.2-3.9) gm/dL Albumin/Globulin Ratio 1.2 (1.0-2.1) Free T4 (0.78-2.19) ng/dL Thyroxine (T4) (5.5-11.0) ug/dl TSH 3rd Generation (0.46-4.68) mIU/ML 01/15/18 Range/Units 11:12 WBC (4.8-10.8) K/uL RBC (3.80-5.20) Mil/uL Hgb (12.0-16.0) g/dL Hct (34.0-47.0) % MCV (81.0-99.0) fl MCH (27.0-31.0) pg MCHC (33.0-37.0) g/dL RDW (11.5-14.5) % Plt Count (130-400) K/uL pO2 (30-55) mm/Hg ABG Carboxyhemoglobin (0.5-1.5) % POC ABG HHb (Measured) (0.0-5.0) % ABG Methemoglobin (0.0-3.0) % VBG pH (7.32-7.43) VBG pCO2 (40-60) mmHg VBG HCO3 mmol/L VBG O2 Sat (Calc) (40-65) % VBG Base Excess (0.0-2.0) mmol/L VBG Hgb O2 Saturation (95.0-98.0) % Hemoglobin (11.7-17.4) g/dL Sodium (132-148) mmol/l Potassium (3.6-5.0) MMOL/L Chloride (98-107) mmol/L Carbon Dioxide (22-30) mmol/L Anion Gap (10-20) BUN (7-17) mg/dl Creatinine (0.7-1.2) mg/dl Est GFR ( Amer) Est GFR (Non-Af Amer) POC Glucose (mg/dL) 145 H (65-110) mg/dL Random Glucose (65-105) mg/dL Calcium (8.4-10.2) mg/dL Phosphorus (2.5-4.5) mg/dl Total Bilirubin (0.2-1.3) mg/dl AST (14-36) U/L ALT (9-52) U/L Alkaline Phosphatase (38-126) U/L Total Protein (6.3-8.2) G/DL Albumin (3.5-5.0) g/dL Globulin (2.2-3.9) gm/dL Albumin/Globulin Ratio (1.0-2.1) Free T4 (0.78-2.19) ng/dL Thyroxine (T4) (5.5-11.0) ug/dl TSH 3rd Generation (0.46-4.68) mIU/ML Laboratory Results - last 24 hr 01/15/18 01/15/18 01/15/18 11:12 12:04 15:28 WBC RBC Hgb Hct MCV MCH MCHC RDW Plt Count pO2 ABG Carboxyhemoglobin POC ABG HHb (Measured) ABG Methemoglobin VBG pH VBG pCO2 VBG HCO3 VBG O2 Sat (Calc) VBG Base Excess VBG Hgb O2 Saturation Hemoglobin Sodium 145 Potassium 3.5 L Chloride 112 H Carbon Dioxide 13 L Anion Gap 24 H BUN 13 Creatinine 0.3 L Est GFR ( Amer) > 60 Est GFR (Non-Af Amer) > 60 POC Glucose (mg/dL) 145 H 160 H Random Glucose 196 H Calcium 10.7 H Phosphorus Total Bilirubin 0.4 AST 13 L D ALT 44 Alkaline Phosphatase 104 Total Protein 6.2 L Albumin 3.3 L D Globulin 2.8 Albumin/Globulin Ratio 1.2 Free T4 Thyroxine (T4) TSH 3rd Generation 01/15/18 01/15/18 01/15/18 15:45 16:39 17:43 WBC RBC Hgb Hct MCV MCH MCHC RDW Plt Count pO2 65 H ABG Carboxyhemoglobin 2.2 H POC ABG HHb (Measured) 3.4 ABG Methemoglobin 1.0 VBG pH 7.33 VBG pCO2 33 L VBG HCO3 18.9 VBG O2 Sat (Calc) 96.5 H VBG Base Excess -7.6 L VBG Hgb O2 Saturation 93.3 L Hemoglobin 13.1 Sodium Potassium Chloride Carbon Dioxide Anion Gap BUN Creatinine Est GFR ( Amer) Est GFR (Non-Af Amer) POC Glucose (mg/dL) 201 H 207 H Random Glucose Calcium Phosphorus Total Bilirubin AST ALT Alkaline Phosphatase Total Protein Albumin Globulin Albumin/Globulin Ratio Free T4 Thyroxine (T4) TSH 3rd Generation 01/15/18 01/15/18 01/15/18 18:35 19:14 20:37 WBC RBC Hgb Hct MCV MCH MCHC RDW Plt Count pO2 ABG Carboxyhemoglobin POC ABG HHb (Measured) ABG Methemoglobin VBG pH VBG pCO2 VBG HCO3 VBG O2 Sat (Calc) VBG Base Excess VBG Hgb O2 Saturation Hemoglobin Sodium Potassium Chloride Carbon Dioxide Anion Gap BUN Creatinine Est GFR ( Amer) Est GFR (Non-Af Amer) POC Glucose (mg/dL) 215 H 209 H 271 H Random Glucose Calcium Phosphorus Total Bilirubin AST ALT Alkaline Phosphatase Total Protein Albumin Globulin Albumin/Globulin Ratio Free T4 Thyroxine (T4) TSH 3rd Generation 01/15/18 01/15/18 01/15/18 21:35 22:32 23:23 WBC RBC Hgb Hct MCV MCH MCHC RDW Plt Count pO2 ABG Carboxyhemoglobin POC ABG HHb (Measured) ABG Methemoglobin VBG pH VBG pCO2 VBG HCO3 VBG O2 Sat (Calc) VBG Base Excess VBG Hgb O2 Saturation Hemoglobin Sodium Potassium Chloride Carbon Dioxide Anion Gap BUN Creatinine Est GFR ( Amer) Est GFR (Non-Af Amer) POC Glucose (mg/dL) 246 H 277 H 241 H Random Glucose Calcium Phosphorus Total Bilirubin AST ALT Alkaline Phosphatase Total Protein Albumin Globulin Albumin/Globulin Ratio Free T4 Thyroxine (T4) TSH 3rd Generation 01/16/18 01/16/18 01/16/18 00:36 01:30 02:32 WBC RBC Hgb Hct MCV MCH MCHC RDW Plt Count pO2 ABG Carboxyhemoglobin POC ABG HHb (Measured) ABG Methemoglobin VBG pH VBG pCO2 VBG HCO3 VBG O2 Sat (Calc) VBG Base Excess VBG Hgb O2 Saturation Hemoglobin Sodium Potassium Chloride Carbon Dioxide Anion Gap BUN Creatinine Est GFR ( Amer) Est GFR (Non-Af Amer) POC Glucose (mg/dL) 251 H 241 H 225 H Random Glucose Calcium Phosphorus Total Bilirubin AST ALT Alkaline Phosphatase Total Protein Albumin Globulin Albumin/Globulin Ratio Free T4 Thyroxine (T4) TSH 3rd Generation 01/16/18 01/16/18 01/16/18 03:31 04:22 05:00 WBC RBC Hgb Hct MCV MCH MCHC RDW Plt Count pO2 ABG Carboxyhemoglobin POC ABG HHb (Measured) ABG Methemoglobin VBG pH VBG pCO2 VBG HCO3 VBG O2 Sat (Calc) VBG Base Excess VBG Hgb O2 Saturation Hemoglobin Sodium 146 Potassium 3.2 L Chloride 113 H Carbon Dioxide 19 L Anion Gap 17 BUN 10 Creatinine 0.3 L Est GFR ( Amer) > 60 Est GFR (Non-Af Amer) > 60 POC Glucose (mg/dL) 232 H 222 H Random Glucose 208 H Calcium 10.5 H Phosphorus 4.2 Total Bilirubin 0.3 AST 19 ALT 31 Alkaline Phosphatase 100 Total Protein 6.2 L Albumin 3.2 L Globulin 3.0 Albumin/Globulin Ratio 1.1 Free T4 Thyroxine (T4) 18.6 H TSH 3rd Generation < 0.02 L 01/16/18 01/16/18 01/16/18 05:00 05:00 05:23 WBC 10.2 RBC 5.59 H Hgb 13.3 Hct 41.5 MCV 74.3 L D MCH 23.8 L MCHC 32.0 L RDW 15.1 H Plt Count 162 pO2 ABG Carboxyhemoglobin POC ABG HHb (Measured) ABG Methemoglobin VBG pH VBG pCO2 VBG HCO3 VBG O2 Sat (Calc) VBG Base Excess VBG Hgb O2 Saturation Hemoglobin Sodium Potassium Chloride Carbon Dioxide Anion Gap BUN Creatinine Est GFR ( Amer) Est GFR (Non-Af Amer) POC Glucose (mg/dL) 248 H Random Glucose Calcium Phosphorus Total Bilirubin AST ALT Alkaline Phosphatase Total Protein Albumin Globulin Albumin/Globulin Ratio Free T4 6.13 H Thyroxine (T4) TSH 3rd Generation 01/16/18 01/16/18 01/16/18 06:28 07:29 08:32 WBC RBC Hgb Hct MCV MCH MCHC RDW Plt Count pO2 ABG Carboxyhemoglobin POC ABG HHb (Measured) ABG Methemoglobin VBG pH VBG pCO2 VBG HCO3 VBG O2 Sat (Calc) VBG Base Excess VBG Hgb O2 Saturation Hemoglobin Sodium Potassium Chloride Carbon Dioxide Anion Gap BUN Creatinine Est GFR ( Amer) Est GFR (Non-Af Amer) POC Glucose (mg/dL) 240 H 253 H 181 H Random Glucose Calcium Phosphorus Total Bilirubin AST ALT Alkaline Phosphatase Total Protein Albumin Globulin Albumin/Globulin Ratio Free T4 Thyroxine (T4) TSH 3rd Generation 01/16/18 10:10 WBC RBC Hgb Hct MCV MCH MCHC RDW Plt Count pO2 ABG Carboxyhemoglobin POC ABG HHb (Measured) ABG Methemoglobin VBG pH VBG pCO2 VBG HCO3 VBG O2 Sat (Calc) VBG Base Excess VBG Hgb O2 Saturation Hemoglobin Sodium Potassium Chloride Carbon Dioxide Anion Gap BUN Creatinine Est GFR ( Amer) Est GFR (Non-Af Amer) POC Glucose (mg/dL) 215 H Random Glucose Calcium Phosphorus Total Bilirubin AST ALT Alkaline Phosphatase Total Protein Albumin Globulin Albumin/Globulin Ratio Free T4 Thyroxine (T4) TSH 3rd Generation Fingerstick Blood Sugar Results: 215 Review of Systems - Cardiovascular Cardiovascular: absent: Chest Pain at Rest, Chest Pain with Activity, Claudication, Diaphoresis - Respiratory Respiratory: absent: Cough, Dyspnea, Hemoptysis, Dyspnea on Exertion, Wheezing, Snoring - Gastrointestinal Gastrointestinal: Abdominal Pain, Nausea, Vomiting. absent: Coffee Ground Emesis, Melena, Temesmus Critical Care Progress Note - Extremities/Vascular Does the Patient have a Central Venous Catheter?: No Does the Patient need a Central Venous Catheter?: No Does the Patient have a Roche Catheter?: No Does the Patient need a Roche Catheter?: No - Nutrition Nutrition: Nutrition Category Date Time Status Consistent Carbohydrate [DIET] Diets 01/15/18 Dinner Active Consistent Carbohydrate [DIET] Diets 01/16/18 Lunch Active Assessment/Plan (1) DKA (diabetic ketoacidoses) Current Visit: Yes Status: Acute Priority: High Comment: Clinically and hemodynamically improved off Insulin drip Restart Home medications Repeate Labs Endocrine Consult Dr. Alanis appretiated (2) Thyroid storm Current Visit: Yes Status: Acute Comment: Continue Methimazole 20 mg PO Q6H PARAG Continue Decadron 1 mg IVP Q6H PARAG Discontinue Cholestyramin Continue Proproanolol 60 mg PO q6h PRN for tachycardia Continue Ondansetron PRN for Nausea/Vomiting Endocrine Consult Dr. Alanis appretiated (3) Dehydration Current Visit: Yes Status: Acute Comment: (4) Abdominal pain Current Visit: Yes Status: Acute (5) Anxiety Current Visit: No Status: Chronic Priority: High (6) DVT prophylaxis Current Visit: Yes Status: Acute
[2018-01-16] MEDS: Insulin Lispro (humaLOG) 100 Units/ml Inj SC SCH ×2 (12:24→16:31)
[2018-01-16] MEDS ORDERED: Metoprolol 1 mg/ml Inj IVP ONE (16:34)
--- NOTE | 2018-01-16 20:40 | PN ---
ENDOCRINOLOGY FOLLOWUP NOTE DATE: LOCATION: In room 424, ICU. SUBJECTIVE: This is a 27-year-old female with recent uncontrolled type 1 insulin-dependent diabetes presenting here with severe diabetic ketoacidosis and dehydration and is now clinically improving both biochemically and metabolically as noted thereof. Her glucose values today have ranged from 179 to 181 and 215 mg/dL. Her latest chemistry showed a BUN of 10, sodium 146, potassium 3.2, chloride 113, CO2 of 19, glucose 208, and creatinine 0.3. Her thyroid studies showed a T4 of 18.6 mcg/dL with a TSH of less than 0.02 and a free T4 of 6.13. Her serum cortisol level is 2.9 mcg/dL. ASSESSMENT AND PLAN: This is a 27-year-old female with uncontrolled and decompensated type 1 insulin-dependent diabetes presenting here with severe diabetic ketoacidosis and dehydration with spurious hyponatremia and hyperkalemia and is clinically and metabolically improving thereof. Moreover, she also had marked thyrotoxicosis with overt hyperthyroidism noted historically, clinically and biochemically related again to drug omission and poor adherence to her intake of methimazole medications as given on the outpatient. She has underlying Graves disease with autoimmune thyroiditis and a concomitant diffuse toxic goiter as noted. Plan of management as discussed with the patient and staff, the imperative need for tighter metabolic control be overemphasized and this was reinforced once again with the patient at bedside regarding the need for adherence to her insulin regimen and also for her thyroid management thereof. We will continue the vigorous IV hydration as given and ordered. We will obtain serial chemistries and supplement accordingly as needed. We will also continue the basal and bolus insulin regimen as ordered by the environmental sampling technician with Levemir at 20 units subcutaneously at bedtime daily and Humalog given as 10 units subcutaneously t.i.d. before meals as ordered. We will titrate incremental as indicated to optimize metabolic control. We will continue the Tapazole given as 20 mg p.o. every 6 hours for now and we will adjust her dose regimen with serial thyroid studies to be undertaken thereof. We will obtain serial chemistries and supplement accordingly as needed. We will follow. Kenzie Alanis MD [facility] # [phone]
[2018-01-16] MEDS ORDERED: Insulin Detemir 100 Units/ml Inj SC SCH (22:00)
[2018-01-17] MEDS: Dexamethasone 4 mg/1 ml IVP SCH ×4 (04:12→21:31)
[2018-01-17 05:39] LABS: HEMOGLOBIN 13.2 g/dL (12.0-16.0); MEAN CELL VOLUME 73.2 fl (81.0-99.0); MEAN CORPUSCULAR HEMOGLOBIN 23.1 pg (27.0-31.0); MEAN CORPUSCULAR HGB CONC 31.6 g/dL (33.0-37.0); RBC 5.72 Mil/uL (3.80-5.20); RED CELL DISTRIBUTION WIDTH 14.7 % (11.5-14.5); WHITE BLOOD COUNT 6.6 K/uL (4.8-10.8)
[2018-01-17 06:02] LABS: BLOOD UREA NITROGEN 12 mg/dl (7-17); CALCIUM 8.9 mg/dL (8.4-10.2); GFR AFRICAN-AMERICAN > 60; GFR NON-AFRICAN AMERICAN > 60
[2018-01-17] MEDS: Insulin Lispro (humaLOG) 100 Units/ml Inj SC SCH ×4 (06:30→21:06)
[2018-01-17] MEDS ORDERED: Potassium Chl 20 mEq in D5-NS 1,000 ML IV SCH (06:30)
[2018-01-17] MEDS ORDERED: Insulin Detemir 100 Units/ml Inj SC SCH ×2 (07:17→22:00)
[2018-01-17 08:11] LABS: T4 17.3 ug/dl (5.5-11.0)
[2018-01-17 08:24] LABS: T3 1.42 nmol/L (1.49-2.60)
--- NOTE | 2018-01-17 13:43 | CP.PCM.PN ---
Subjective - Date & Time of Evaluation Date of Evaluation: 01/17/18 Time of Evaluation: 13:00 - Subjective Subjective: No fever alert, oriented x 3 palpitation resolved feels better denies CP no SOB no abd pain Objective - Vital Signs/Intake and Output Vital Signs (last 24 hours): Temp Pulse Resp BP Pulse Ox 98.7 F 77 22 148/78 98 01/17/18 08:00 01/17/18 12:00 01/17/18 06:00 01/17/18 10:00 01/17/18 06:00 Intake and Output: 01/17/18 01/17/18 06:59 18:59 Intake Total 1165 770 Output Total 1999 Balance 1165 -1230 - Medications Medications: Current Medications Acetaminophen (Tylenol 325mg Tab) 650 mg PO Q6 PRN PRN Reason: Fever >100.4 F Dexamethasone (Decadron Inj) 1 mg IVP Q6H [facility] Last Admin: 01/17/18 10:06 Dose: 1 mg Dextrose (Dextrose 50% Inj) 0 ml IV STAT PRN; Protocol PRN Reason: Hypoglycemia Protocol Dextrose (Glutose 15) 0 gm PO ONCE PRN; Protocol PRN Reason: Hypoglycemia Protocol Glucagon (Glucagen Diagnostic Kit) 0 mg IM STAT PRN; Protocol PRN Reason: Hypoglycemia Protocol Propranolol HCl 1 mg/ Sodium (Chloride) 51 mls @ 306 mls/hr IV ONCE [facility] Last Admin: 01/15/18 04:05 Dose: 306 mls/hr Potassium Chloride/Dextrose/Sod Cl (Potassium Chl 20 Meq In D5-Ns) 1,000 mls @ 75 mls/hr IV .[id number] [facility] Stop: 01/18/18 06:24 Last Admin: 01/17/18 10:36 Dose: 75 mls/hr Insulin Detemir (Levemir) 35 units SC HS [facility] Insulin Human Lispro (Humalog) 10 units SC ACTID [facility] Last Admin: 01/17/18 12:09 Dose: 10 units Methimazole (Tapazole) 20 mg PO Q6H [facility] Last Admin: 01/17/18 10:07 Dose: 20 mg Ondansetron HCl (Zofran Inj) 4 mg IVP Q6H PRN PRN Reason: Nausea/Vomiting Last Admin: 01/16/18 16:27 Dose: 4 mg Propranolol HCl (Inderal) 60 mg PO Q6H [facility] Last Admin: 01/17/18 07:31 Dose: 60 mg - Labs Labs: 01/17/18 04:20 01/17/18 04:20 - Constitutional Appears: Non-toxic, No Acute Distress - Head Exam Head Exam: ATRAUMATIC, NORMAL INSPECTION, NORMOCEPHALIC - Eye Exam Eye Exam: EOMI, PERRL Pupil Exam: NORMAL ACCOMODATION - ENT Exam ENT Exam: Mucous Membranes Moist, Normal External Ear Exam - Neck Exam Neck Exam: Full ROM, Thyromegaly. absent: Meningismus - Respiratory Exam Respiratory Exam: NORMAL BREATHING PATTERN. absent: Rales, Wheezes, Respiratory Distress - Cardiovascular Exam Cardiovascular Exam: REGULAR RHYTHM, +S1, +S2 - GI/Abdominal Exam GI & Abdominal Exam: Soft, Normal Bowel Sounds. absent: Tenderness - Extremities Exam Extremities Exam: Full ROM, Normal Capillary Refill, Normal Inspection. absent : Calf Tenderness - Back Exam Back Exam: Full ROM, NORMAL INSPECTION. absent: CVA tenderness (L), CVA tenderness (R), paraspinal tenderness - Neurological Exam Neurological Exam: Alert, Awake, CN II-XII Intact, Oriented x3 Neuro motor strength exam: Left Upper Extremity: 5, Right Upper Extremity: 5, Left Lower Extremity: 5, Right Lower Extremity: 5 - Psychiatric Exam Psychiatric exam: Normal Affect, Normal Mood - Skin Skin Exam: Dry, Normal Color, Warm Assessment and Plan (1) Thyroid storm Status: Acute (2) DKA (diabetic ketoacidoses) Status: Acute (3) Dehydration Status: Acute (4) Leukocytosis Status: Acute - Assessment and Plan (Free Text) Assessment: 27 y/o lady with hx of DM, Hyperthyroidism, HTN, Substance Abuse , noncompliant with her medications, was brought in by EMS after her mother had noticed that she was lethargic and very tachycardic, and also had had fever. EMS found her in [place] and had given her Adenosine. In the ED , she was found to be in DKA and Thyroid Storm. She was admitted in ICU and started on IVF hydration , Insulin drip . CT of head : neg CT of chest and Abd : neg Drug Screen : + for Cocaine 1. Thyroid Storm with fever, HTN, Tachycardia and AMS - started initially on IV BB - now on Propranolol PO - cont Methimazole - Pt also on Decadron and Cholestyramine - - now afebrile, HR controlled, BP better controlled - Endo consult 2. DKA - had High anion gap acidosis - IVF hydration - cont Levemir and Lispro' - accucheck q achs 3. Leukocytosis prob reactive empirically started on IV Zosyn fever and leukocytosis resolved - US neg - CT of abd and Chest : neg - consider d/c abx 4. HTN uncontrolled likely due to the Thyroid storm, med noncompliance and , + Cocaine in system -pt on Propranolol 5. + Cocaine on Drug Screen DVT proph - SCD
[2018-01-17] MEDS ORDERED: Insulin Lispro (humaLOG) 100 Units/ml Inj SC ONE (17:42)
[2018-01-17] MEDS: Sodium Chloride 0.45% 1,000 ML IV SCH (17:58)
[2018-01-18] MEDS: Dexamethasone 4 mg/1 ml IVP SCH ×2 (03:35→10:02)
[2018-01-18] MEDS: Sodium Chloride 0.45% 1,000 ML IV SCH (03:41)
[2018-01-18 05:19] LABS: HEMOGLOBIN 12.9 g/dL (12.0-16.0); MEAN CELL VOLUME 73.5 fl (81.0-99.0); MEAN CORPUSCULAR HEMOGLOBIN 23.7 pg (27.0-31.0); MEAN CORPUSCULAR HGB CONC 32.3 g/dL (33.0-37.0); RBC 5.43 Mil/uL (3.80-5.20); RED CELL DISTRIBUTION WIDTH 14.3 % (11.5-14.5)
[2018-01-18] MEDS: Insulin Lispro (humaLOG) 100 Units/ml Inj SC SCH ×4 (06:30→12:04)
[2018-01-18 06:42] LABS: ALB/GLOB RATIO 1.1 (1.0-2.1); ALBUMIN 2.9 g/dL (3.5-5.0); ALT/SGPT 35 U/L (9-52); AST/SGOT 25 U/L (14-36); BLOOD UREA NITROGEN 11 mg/dl (7-17); CALCIUM 9.2 mg/dL (8.4-10.2); GFR AFRICAN-AMERICAN > 60; GFR NON-AFRICAN AMERICAN > 60
--- NOTE | 2018-01-18 07:43 | PN ---
ENDOCRINOLOGY FOLLOWUP NOTE DATE: LOCATION: She is in ICU, room 424. SUBJECTIVE: This is a 27-year-old female with recent uncontrolled type 1 insulin-dependent diabetes, presenting here with diabetic ketoacidosis and dehydration and since then improved clinically and metabolically with the initiation of vigorous IV hydration and intensive insulin therapy as given. Her oral intake today has improved with a subsidence of the nausea and vomiting as noted yesterday. Her glucose levels are fluctuating at a range from 375 to 399 mg/dL. LABORATORY DATA: Her latest chemistry showed BUN of 12, sodium 138, potassium 4, chloride 103, CO2 of 25, glucose 403, and creatinine 0.3. Her latest thyroid study showed T4 of 17.3 with a TSH of less than 0.02. ASSESSMENT: Uncontrolled type 1 insulin-dependent diabetes with resolved diabetic ketoacidosis and dehydration, although she remains to have increased osmotic diuresis because of persistent hyperglycemic accelerations as needed thereof. She also had a recent overt thyrotoxicosis from drug omission and has tolerated her high-dose thioureas with Tapazole medication as given. PLAN OF MANAGEMENT: We will modify her current insulin regimen and titrate her Humalog to 14 units subcutaneously t.i.d. before meals to start today as ordered. We will also increase the basal insulin with Levemir to be given as 40 units subcutaneously at bedtime daily to start tonight. We will modify the coverage scale to ciara hypoglycemia and detailed orders have been given for a low-dose Humalog insulin as given. We will obtain serial chemistries and supplement accordingly as needed. We will also change the IV hydration to half normal saline running at 100 mL per hour as given. We will obtain serial chemistries. Kenzie Alanis MD
[2018-01-18 12:30] VITALS: BP 138/69; PULSE 95; RESP 18; TEMP 97.7; O2SAT 95
--- NOTE | 2018-01-18 13:20 | CP.PCM.DIS ---
Provider - Provider Date of Admission: 01/15/18 03:38 Attending physician: Nichole Moon MD Primary care physician: Dr Caro Consults: Dr Alanis : Mayank Time Spent in preparation of Discharge (in minutes): 25 Diagnosis - Discharge Diagnosis (1) Thyroid storm Status: Acute (2) DKA (diabetic ketoacidoses) Status: Acute Priority: High (3) Dehydration Status: Acute (4) Leukocytosis Status: Acute Hospital Course - Lab Results Lab Results: Micro Results 01/15/18 02:36 Blood Blood Culture - Preliminary NO GROWTH AFTER 3 DAYS 01/15/18 18:00 Nose MRSA Culture (Admit) - Final MRSA NOT DETECTED 01/15/18 03:30 Urine Urine Culture - Final No Growth (<1,000 CFU/ML) Most Recent Lab Values WBC 6.0 K/uL (4.8-10.8) 01/18/18 04:20 RBC 5.43 Mil/uL (3.80-5.20) H 01/18/18 04:20 Hgb 12.9 g/dL (12.0-16.0) 01/18/18 04:20 Hct 39.9 % (34.0-47.0) 01/18/18 04:20 MCV 73.5 fl (81.0-99.0) L 01/18/18 04:20 MCH 23.7 pg (27.0-31.0) L 01/18/18 04:20 MCHC 32.3 g/dL (33.0-37.0) L 01/18/18 04:20 RDW 14.3 % (11.5-14.5) 01/18/18 04:20 Plt Count 126 K/uL (130-400) L 01/18/18 04:20 MPV 10.4 fl (7.2-11.7) 01/15/18 02:18 Neut % (Auto) 83.6 % (50.0-75.0) H 01/15/18 02:18 Lymph % (Auto) 6.1 % (20.0-40.0) L 01/15/18 02:18 Sterling % (Auto) 10.2 % (0.0-10.0) H 01/15/18 02:18 Eos % (Auto) 0.0 % (0.0-4.0) 01/15/18 02:18 Baso % (Auto) 0.1 % (0.0-2.0) 01/15/18 02:18 Neut # (Auto) 15.4 K/uL (1.8-7.0) H 01/15/18 02:18 Lymph # (Auto) 1.1 K/uL (1.0-4.3) 01/15/18 02:18 Sterling # (Auto) 1.9 K/uL (0.0-0.8) H 01/15/18 02:18 Eos # (Auto) 0.0 K/uL (0.0-0.7) 01/15/18 02:18 Baso # (Auto) 0.0 K/uL (0.0-0.2) 01/15/18 02:18 Neutrophils % (Manual) 86 % (42-75) H 01/15/18 02:18 Lymphocytes % (Manual) 6 % (20-50) L 01/15/18 02:18 Reactive Lymphs % 2 % (0-0) H 01/15/18 02:18 Monocytes % (Manual) 6 % (0-10) 01/15/18 02:18 Platelet Estimate Normal (NORMAL) 01/15/18 02:18 RBC Morphology Normal (NORMAL) 01/15/18 02:18 pCO2 26 mm/Hg (35-45) L 01/15/18 09:20 pO2 65 mm/Hg (30-55) H 01/15/18 15:45 HCO3 15.6 mmol/L (21-28) L 01/15/18 09:20 ABG pH 7.30 (7.35-7.45) L 01/15/18 09:20 ABG Total CO2 13.6 mmol/L (22-28) L 01/15/18 09:20 ABG O2 Saturation 100.1 % (95-98) H 01/15/18 09:20 ABG O2 Content 19.2 ML/dL (15-23) 01/15/18 09:20 ABG Base Excess -11.9 mmol/L (-2.0-3.0) L 01/15/18 09:20 ABG Hemoglobin 14.2 g/dL (11.7-17.4) 01/15/18 09:20 ABG Carboxyhemoglobin 2.2 % (0.5-1.5) H 01/15/18 15:45 POC ABG HHb (Measured) 3.4 % (0.0-5.0) 01/15/18 15:45 ABG Methemoglobin 1.0 % (0.0-3.0) 01/15/18 15:45 ABG O2 Capacity 19.2 mL/dL (16-24) 01/15/18 09:20 Karl Test Yes 01/15/18 09:20 VBG pH 7.33 (7.32-7.43) 01/15/18 15:45 VBG pCO2 33 mmHg (40-60) L 01/15/18 15:45 VBG HCO3 18.9 mmol/L 01/15/18 15:45 VBG Total CO2 4.7 mmol/L (22-28) L 01/15/18 02:41 VBG O2 Sat (Calc) 96.5 % (40-65) H 01/15/18 15:45 VBG Base Excess -7.6 mmol/L (0.0-2.0) L 01/15/18 15:45 VBG Hgb O2 Saturation 93.3 % (95.0-98.0) L 01/15/18 15:45 VBG Potassium 5.3 mmol/L (3.6-5.2) H 01/15/18 02:41 A-a O2 Difference 10.0 mm/Hg 01/15/18 09:20 Hemoglobin 13.1 g/dL (11.7-17.4) 01/15/18 15:45 Hgb O2 Saturation 95.6 % (95.0-98.0) 01/15/18 09:20 Sodium 137.0 mmol/L (132-148) 01/15/18 02:41 Chloride 102.0 mmol/L (98-107) 01/15/18 02:41 Glucose 450 mg/dL (65-105) H* 01/15/18 02:41 Lactate 1.9 mmol/L (0.7-2.1) 01/15/18 02:41 FiO2 21.0 % 01/15/18 09:20 Crit Value Called To Marlen paul md 01/15/18 02:41 Crit Value Called By Nancy 01/15/18 02:41 Crit Value Read Back Y 01/15/18 02:41 Blood Gas Notified Time 246 01/15/18 02:41 Sodium 136 mmol/l (132-148) 01/18/18 04:20 Potassium 4.3 MMOL/L (3.6-5.0) 01/18/18 04:20 Chloride 99 mmol/L (98-107) 01/18/18 04:20 Carbon Dioxide 27 mmol/L (22-30) 01/18/18 04:20 Anion Gap 14 (10-20) 01/18/18 04:20 BUN 11 mg/dl (7-17) 01/18/18 04:20 Creatinine 0.3 mg/dl (0.7-1.2) L 01/18/18 04:20 Est GFR ( Amer) > 60 01/18/18 04:20 Est GFR (Non-Af Amer) > 60 01/18/18 04:20 POC Glucose (mg/dL) 278 mg/dL (65-110) H 01/18/18 11:18 Random Glucose 323 mg/dL (65-105) H 01/18/18 04:20 Calcium 9.2 mg/dL (8.4-10.2) 01/18/18 04:20 Phosphorus 4.2 mg/dl (2.5-4.5) 01/16/18 05:00 Total Bilirubin 1.1 mg/dl (0.2-1.3) 01/18/18 04:20 AST 25 U/L (14-36) 01/18/18 04:20 ALT 35 U/L (9-52) 01/18/18 04:20 Alkaline Phosphatase 107 U/L (38-126) 01/18/18 04:20 Troponin I 0.0120 ng/mL (0.00-0.120) 01/15/18 02:18 Total Protein 5.6 G/DL (6.3-8.2) L 01/18/18 04:20 Albumin 2.9 g/dL (3.5-5.0) L 01/18/18 04:20 Globulin 2.7 gm/dL (2.2-3.9) 01/18/18 04:20 Albumin/Globulin Ratio 1.1 (1.0-2.1) 01/18/18 04:20 Free T4 6.13 ng/dL (0.78-2.19) H 01/16/18 05:00 Thyroxine (T4) 17.3 ug/dl (5.5-11.0) H 01/17/18 07:43 Total T3 1.42 nmol/L (1.49-2.60) L 01/17/18 07:43 TSH 3rd Generation < 0.02 mIU/ML (0.46-4.68) L 01/17/18 07:43 Cortisol AM Sample 2.9 ug/dL (4.46-22.7) L 01/16/18 05:00 Venous Blood Potassium 5.3 mmol/L (3.6-5.2) H 01/15/18 02:41 Urine Color Yellow (YELLOW) 01/15/18 03:30 Urine Clarity Slighty-cloudy (Clear) 01/15/18 03:30 Urine pH 5.0 (5.0-8.0) 01/15/18 03:30 Ur Specific [place] 1.014 (1.003-1.030) 01/15/18 03:30 Urine Protein 100 mg/dL (NEGATIVE) 01/15/18 03:30 Urine Glucose (UA) >=500 mg/dL (Normal) 01/15/18 03:30 Urine Ketones 80 mg/dL (NEGATIVE) 01/15/18 03:30 Urine Blood Small (NEGATIVE) 01/15/18 03:30 Urine Nitrate Negative (NEGATIVE) 01/15/18 03:30 Urine Bilirubin Negative (NEGATIVE) 01/15/18 03:30 Urine Urobilinogen 0.2-1.0 mg/dL (0.2-1.0) 01/15/18 03:30 Ur Leukocyte Esterase Neg Moose/uL (Negative) 01/15/18 03:30 Urine RBC (Auto) 1 /hpf (0-3) 01/15/18 03:30 Ur Squamous Epith Cells 2 /hpf (0-5) 01/15/18 03:30 Urine Bacteria Rare (<OCC) 01/15/18 03:30 Urine Opiates Screen Negative (NEGATIVE) 01/15/18 03:30 Urine Methadone Screen Negative (NEGATIVE) 01/15/18 03:30 Ur Barbiturates Screen Negative (NEGATIVE) 01/15/18 03:30 Ur Phencyclidine Scrn Negative (NEGATIVE) 01/15/18 03:30 Ur Amphetamines Screen Negative (NEGATIVE) 01/15/18 03:30 U Benzodiazepines Scrn Negative (NEGATIVE) 01/15/18 03:30 U Oth Cocaine Metabols Positive (NEGATIVE) H 01/15/18 03:30 U Cannabinoids Screen Negative (NEGATIVE) 01/15/18 03:30 Thyroperoxidase Ab 122 IU/mL (<9) H 01/16/18 05:00 - Hospital Course Hospital Course: 27 y/o lady with hx of DM, Hyperthyroidism, HTN, Substance Abuse , noncompliant with her medications, was brought in by EMS after her mother had noticed that she was lethargic and very tachycardic, and also had had fever. EMS found her in [place] and had given her Adenosine. In the ED , she was found to be in DKA and Thyroid Storm. She was admitted in ICU and started on IVF hydration , Insulin drip . CT of head : neg CT of chest and Abd : neg Drug Screen : + for Cocaine 1. Thyroid Storm with fever, HTN, Tachycardia and AMS - started initially on IV BB - now on Propranolol PO - cont Methimazole - Pt also received Decadron and Cholestyramine - - now afebrile, HR controlled, BP better controlled - Endo consulted -Pt wants to go home, she has her own Endo and will ff up with her eamon as outpt 2. DKA - had High anion gap acidosis - IVF hydration - cont Levemir and Lispro' - accucheck q achs 3. Leukocytosis prob reactive empirically started on IV Zosyn fever and leukocytosis resolved - US neg - CT of abd and Chest : neg - consider d/c abx 4. HTN uncontrolled likely due to the Thyroid storm, med noncompliance and , + Cocaine in system -pt on Propranolol DVT proph - SCD Discharge Exam - Head Exam Head Exam: ATRAUMATIC, NORMAL INSPECTION, NORMOCEPHALIC - Eye Exam Eye Exam: EOMI, PERRL Pupil Exam: NORMAL ACCOMODATION - ENT Exam ENT Exam: Mucous Membranes Moist, Normal External Ear Exam - Neck Exam Neck exam: Full Rom, Thyromegaly - Respiratory Exam Respiratory Exam: NORMAL BREATHING PATTERN. absent: Respiratory Distress - Cardiovascular Exam Cardiovascular Exam: REGULAR RHYTHM, +S1, +S2 - GI/Abdominal Exam GI & Abdominal Exam: Normal Bowel Sounds, Soft. absent: Tenderness - Extremities Exam Extremities exam: full ROM, normal capillary refill, normal inspection, pedal pulses present - Back Exam Back exam: FULL ROM. absent: CVA tenderness (L), CVA tenderness (R), vertebral tenderness - Neurological Exam Neurological exam: Alert, CN II-XII Intact, Oriented x3, Reflexes Normal - Psychiatric Exam Psychiatric exam: Normal Affect, Normal Mood - Skin Skin Exam: Dry, Normal Color, Warm Discharge Plan - Discharge Medications Prescriptions: Furosemide [Lasix] 10 mg PO DAILY #30 tab Insulin Detemir [Levemir] 40 units SC HS 30 Days #4 vial Insulin Lispro [Humalog Kwikpen U-100] 20 unit SQ ACTID 30 Days #1 insuln.pen Losartan [Cozaar] 100 mg PO DAILY #30 tab methIMAzole [Tapazole] 20 mg PO Q6H #120 tab Propranolol [Inderal] 60 mg PO Q6H #120 tab - Follow Up Plan Condition: GOOD Disposition: HOME/ ROUTINE Instructions: Diabetic Ketoacidosis (DC), Diabetic Ketoacidosis (GEN) Additional Instructions: ff up with Dr Caro eamon ff up with own Endo eamon Referrals: Yosvany Caro MD [Staff Provider] -
[2018-01-18 17:48] LABS: TSI 440 % baseline (<140)
--- NOTE | 2018-01-18 20:32 | PN ---
ENDOCRINOLOGY FOLLOWUP NOTE DATE: 01/18/2018 LOCATION: In ICU, 424. SUBJECTIVE: This is a 27-year-old female with uncontrolled decompensated type 1 insulin-dependent diabetes, presenting here with severe diabetic ketoacidosis and dehydration and since then improved clinically and metabolically as noted thereof. Her latest chemistry today showed BUN of 11, sodium 136, potassium 4.3, chloride 99, CO2 of 27, and her glucose values are still fluctuating and have ranged from 278 to 300 mg/dL. So, at this time because of the patient's insistence of going home despite the extremes of glycemic fluctuations as noted, we will highly recommended to follow with her Endocrinology within a week or two weeks post-discharge to have a closer metabolic and clinical followup thereof. 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 We would recommend the same dosing regimen with Levemir given as 40 units subcutaneously at bedtime daily to start tonight. Continue the Humalog given as subcutaneously t.i.d. before meals as ordered. We will titrate incremental as indicated to optimize metabolic control. We will follow and advise . Kenzie Alanis MD
== END 2018-01-18 14:06 | disposition home or self-care (01) | DRG 300 ==
LOC: H.ER 01:53 → H.ERHOLD 03:38 → H.ICU/CCU 12:55
PROVIDERS: ADMIT Internal Medicine; ATTEND Internal Medicine
DX: E05.01 Thyrotoxicosis with diffuse goiter with thyrotoxic crisis or storm (principal); E10.10 Type 1 diabetes mellitus with ketoacidosis without coma; F14.10 Cocaine abuse, uncomplicated; E86.0 Dehydration; E87.5 Hyperkalemia; E87.1 Hypo-osmolality and hyponatremia; E05.90 Thyrotoxicosis, unspecified without thyrotoxic crisis or storm; I47.1 Supraventricular tachycardia; I25.10 Atherosclerotic heart disease of native coronary artery without angina pectoris; F41.9 Anxiety disorder, unspecified; I10 Essential (primary) hypertension; G43.909 Migraine, unspecified, not intractable, without status migrainosus; D72.829 Elevated white blood cell count, unspecified; Z91.19 Patient's noncompliance with other medical treatment and regimen; Z87.891 Personal history of nicotine dependence; Z82.49 Family history of ischemic heart disease and other diseases of the circulatory system; E78.5 Hyperlipidemia, unspecified; E06.3 Autoimmune thyroiditis